=== PATIENT | male | born 1940 | race Caucasian/White ===

== ENCOUNTER → 2016-04-11 | Outpatient (CLI) | payer OTHER ==
[~2016-04-11] MED LIST: ACET-1256 PO; ASPEC81 PO; ASPI-390 PO; CIPRO PO; DOCU-94 PO; DUTA0.5C PO; EYED OPL; GARL10007 PO; GLC500 PO; GLYB5TAB8 PO; LATA0.5S OPL; LOSA100T26 PO; LOSARTAN/HCTZ; LPT/40 PO; LRT5 PO; MCR25 PO; METH1TAB81 PO; MULT-506 PO; NAPR1CAP12 PO; ONDA4TAB46 PO; PHEN-876 PO; SIMV80TA2 PO; TAMS0.4C38 PO
--- NOTE | 2016-04-11 13:17 | DIAGNOSTIC IMAGING REPORT ---
L-SPINE MIN 4 VIEWS ROUTINE CLINICAL HISTORY: Abnormal bone scan . COMPARISON: Lumbar spine radiographs January 28, 2011 and bone scan March 29, 2016. FINDINGS: No acute fracture is identified. No suspicious lesion is identified by radiography. There is grade I anterolisthesis of L4 and L5. There is marked disc space narrowing at L4-L5 and moderate to marked disc space narrowing at L5-S1. Findings have progressed since exam of January 28, 2011. Uptake at the L4-L5 level on bone scan of March 29, 2016 corresponds to the L4-L5 level and is likely degenerative in etiology. IMPRESSION: 1. Marked disc space narrowing with grade I anterolisthesis at L4-L5 which accounts for the finding at this level on bone scan of March 29, 2016. 2. No lumbar spine fracture. Electronically signed by: Mj Sutherland M.D. 04/11/2016 1:15 PM Dictated Date/Time: 04/11/2016 1:13 PM
--- NOTE | 2016-04-11 13:17 | DIAGNOSTIC IMAGING REPORT ---
THORACIC SPINE 3 VIEWS CLINICAL HISTORY: Reported history of unspecified abnormal bone scan. FINDINGS: AP, lateral, and swimmer's views of the thoracic spine are presented. No prior studies are available for comparison at the time of dictation. The skeletal structures are osteopenic. There is no radiographic evidence of fracture or malalignment. Vertebral body height and alignment are maintained throughout the thoracic spine. Anterior osteophytes are seen throughout. There is moderate to advanced multilevel degenerative disc space narrowing. Endplate sclerosis is also seen at several levels. The transverse processes and pedicles are grossly intact on the frontal view. The imaged posterior ribs are grossly clear. The lung parenchyma is clear as imaged. IMPRESSION: 1. No acute bony abnormality is identified in the thoracic spine. 2. Osteopenia and spondylotic change as above. Dictated: 04/11/2016 1:12 PM Transcribed: 04/11/2016 1:16 PM [facility] Electronically signed by: Sandro Elaine M.D. 04/11/2016 1:23 PM Dictated Date/Time: 04/11/2016 1:12 PM
== END | disposition home or self-care (01) ==
LOC: C.RAD 12:21
PROVIDERS: ATTEND Radiology Radiation Oncology
DX: C61 Malignant neoplasm of prostate (principal); R93.8 Abnormal findings on diagnostic imaging of other specified body structures; M43.16 Spondylolisthesis, lumbar region; M85.88 Other specified disorders of bone density and structure, other site

== ENCOUNTER → 2016-05-30 | Outpatient (CLI) | payer OTHER ==
[~2016-05-30] MED LIST changes: -LOSARTAN/HCTZ; -LRT5 PO; -MCR25 PO; -ONDA4TAB46 PO; -SIMV80TA2 PO
[2016-05-30 12:56] LABS: BLOOD UREA NITROGEN 20 mg/dl (7-18); BUN/CREATININE RATIO 16.3 (10-20); CARBON DIOXIDE 27 mmol/L (21-32); CHLORIDE 104 mmol/L (98-107); CHOLESTEROL 122 mg/dl (0-200); GLUCOSE 102 mg/dl (70-99); POTASSIUM 3.8 mmol/L (3.5-5.1); SODIUM 140 mmol/L (136-145)
[2016-05-30 12:59] LABS: CHOLESTEROL/HDL RATIO 3.3; HDL CHOLESTEROL 37 mg/dl; TRIGLYCERIDES 95 mg/dl (0-150); VERY LOW DENSITY LIPOPROT CALC 19 mg/dl
[2016-05-30 13:25] LABS: RATIO 8.6 mcg/mg (0-30.0)
[2016-05-30 14:08] LABS: ESTIMATED AVERAGE GLUCOSE 134 mg/dl; HA1C FLAG Normal (Normal)
== END | disposition home or self-care (01) ==
LOC: C.LABSPEC 12:18
PROVIDERS: ATTEND Internal Medicine
DX: I10 Essential (primary) hypertension (principal); E11.9 Type 2 diabetes mellitus without complications; E78.5 Hyperlipidemia, unspecified

== ENCOUNTER → 2016-06-25 | Outpatient (CLI) | payer OTHER ==
[~2016-06-25] MED LIST changes: -CIPRO PO; -METH1TAB81 PO; -PHEN-876 PO
--- NOTE | 2016-06-25 15:56 | ECHOCARDIOGRAM REPORT ---
*NOTICE TO RECEIVING CONSTITUTION PARTY AGENCY This information is strictly Confidential and protected under [place] law. [place] law prohibits you from making any further disclosure of this information unless further disclosure is expressly permitted by the written consent of the person to whom it pertains or is authorized by law. A general authorization for the release of medical or other information is not sufficient for this purpose. Hospital accepts no responsibility if the information is made available to any other person, INCLUDING THE PATIENT. Interpretation Summary * Name: CRISTINA HERR Study Date: 06/25/2016 01:41 PM BP: 147/81 mmHg * Patient Location: [facility] HR: 84 * : 1940 (M/d/yyyy) Gender: Male Height: 69 in * Age: 75 yrs Ethnicity: [place] Weight: 170 lb * Ordering Physician: Seamus Grubbs * Referring Physician: Seamus Grubbs * Performed By: Angi Jones RDCS * * Reason For Study: SYSTOLIC EJECTION MURMUR * BSA: 1.9 m2 * History: SYSTOLIC EJECTION MURMUR * -- Conclusions -- * Left ventricular systolic function is normal. * Mild valvular aortic stenosis. * There is mild mitral regurgitation. * Right ventricular systolic pressure is normal. * Grade I diastolic dysfunction, (abnormal relaxation pattern). Procedure Details * A complete two-dimensional transthoracic echocardiogram was performed (2D, M-mode, Doppler and color flow Doppler). Left Ventricle * The left ventricle is normal in size. * There is normal left ventricular wall thickness. * Left ventricular systolic function is normal. * Ejection Fraction = 50-55%. * Grade I diastolic dysfunction, (abnormal relaxation pattern). Right Ventricle * The right ventricle is normal in size and function. Atria * The left atrial size is normal. * Right atrial size is normal. Mitral Valve * The mitral valve leaflets appear thickened, but open well. * There is mild mitral regurgitation. Tricuspid Valve * The tricuspid valve is not well visualized, but is grossly normal. * There is mild tricuspid regurgitation. * Right ventricular systolic pressure is normal. Aortic Valve * The aortic valve is tricuspid. The leaflet thickness if normal. There is no aortic stenosis, and no significant insufficiency. * Mild valvular aortic stenosis. * There is no significant aortic regurgitation. Great Vessels * The aortic root is normal size. Pericardium/Pleural * There is no pericardial effusion. MMode 2D Measurements and Calculations IVSd 0.93 cm IVSs 1.2 cm LVIDd 4.0 cm LVIDs 3.5 cm LVPWd 0.97 cm LVPWs 1.5 cm IVS/LVPW 0.96 FS 13.4 % EDV(Teich) 71.5 ml ESV(Teich) 50.7 ml EF(Teich) 29.0 % EDV(cubed) 65.7 ml ESV(cubed) 42.7 ml EF(cubed) 35.0 % % IVS thick 34.0 % % LVPW thick 55.1 % LV mass(C)d 120.1 grams LV mass(C)dI 62.3 grams/m\S\2 LV mass(C)s 168.1 grams LV mass(C)sI 87.2 grams/m\S\2 SV(Teich) 20.8 ml SI(Teich) 10.8 ml/m\S\2 SV(cubed) 23.0 ml SI(cubed) 11.9 ml/m\S\2 Ao root diam 2.6 cm Ao root area 5.2 cm\S\2 LA dimension 2.9 cm LA/Ao 1.1 LVOT diam 2.1 cm LVOT area 3.4 cm\S\2 LVAd ap4 33.0 cm\S\2 LVLd ap4 8.1 cm EDV(MOD-sp4) 111.0 ml LVAs ap4 19.7 cm\S\2 LVLs ap4 6.8 cm ESV(MOD-sp4) 49.8 ml EF(MOD-sp4) 55.1 % LVAd ap2 22.9 cm\S\2 LVLd ap2 8.2 cm EDV(MOD-sp2) 54.4 ml LVAs ap2 13.2 cm\S\2 LVLs ap2 6.8 cm ESV(MOD-sp2) 23.0 ml EF(MOD-sp2) 57.7 % SV(MOD-sp4) 61.2 ml SI(MOD-sp4) 31.7 ml/m\S\2 SV(MOD-sp2) 31.4 ml SI(MOD-sp2) 16.3 ml/m\S\2 Doppler Measurements and Calculations MV E max miguelangel 53.8 cm/sec MV A max miguelangel 104.8 cm/sec MV E/A 0.51 MV dec time 0.22 sec Ao V2 max 247.8 cm/sec Ao max PG 24.6 mmHg Ao max PG (full) 22.3 mmHg Ao V2 mean 185.8 cm/sec Ao mean PG 15.0 mmHg Ao mean PG (full) 13.6 mmHg Ao V2 VTI 48.8 cm MELO(I,A) 1.2 cm\S\2 MELO(I,D) 1.2 cm\S\2 MELO(V,A) 1.0 cm\S\2 MELO(V,D) 1.0 cm\S\2 LV V1 max PG 2.3 mmHg LV V1 mean PG 1.4 mmHg LV V1 max 76.2 cm/sec LV V1 mean 55.8 cm/sec LV V1 VTI 17.1 cm SV(Ao) 251.5 ml SI(Ao) 130.4 ml/m\S\2 SV(LVOT) 57.3 ml SI(LVOT) 29.7 ml/m\S\2 TR max miguelangel 218.3 cm/sec
== END | disposition home or self-care (01) ==
LOC: C.CPL 13:27
PROVIDERS: ATTEND Anesthesiology Pain Medicine
DX: Z01.810 Encounter for preprocedural cardiovascular examination (principal); R01.1 Cardiac murmur, unspecified

== ENCOUNTER 2016-06-27 05:16 | Day surgery (SDC) | payer OTHER ==
[2016-06-12 11:47] VITALS: BMI 25.0
--- NOTE | 2016-06-12 12:25 | PAT Medication Instructions ---
Service Date Jun 12, 2016. Current Home Medication List Acetaminophen (Tylenol), 1-2 TAB PO PRN Aspirin Enteric Coated (Ecotrin Or Generic *), 81 MG PO QPM Bvfoyte-Ecshbimefmeai-Thfqciyq (Excedrin Migraine), 2 TAB PO PRN Atorvastatin (Lipitor), 80 MG PO QPM Docusate Sodium (Colace), 1 CAP PO BID Eye Drops (Eye Drops), 1 DROP OPL HS Garlic (Garlic), 1,000 MG PO QAM Glyburide (Micronase), 5 MG PO DAILY Glyburide (Micronase), 2.5 MG PO HS Losartan Potassium & Hydrochlo (Losartan Potassium/Hydroc), 1 TAB PO QAM Metformin HCL (Glucophage *), 1,000 MG PO BID Methylprednisolone (Medrol), 6 TAB PO UD Multivitamin (Multivitamin), 1 TAB PO QAM Naproxen Sodium (Aleve), 220 MG PO PRN Phenazopyridine HCl (Pyridium), 200 MG PO TID Tamsulosin Hcl (Flomax), 0.4 MG PO HS [Cipro], 1 TAB PO BID Medication Instructions For Your Scheduled Surgery Phenazopyridine HCl (Pyridium), 200 MG PO TID (patient no longer taking) [Cipro], 1 TAB PO BID (patient no longer taking) Methylprednisolone (Medrol), 6 TAB PO UD (patient no longer taking) - Check with surgeon for instructions: Aspirin Enteric Coated (Ecotrin Or Generic *), 81 MG PO QPM Yhjriue-Ieravnczueyqx-Kkrkgybk (Excedrin Migraine), 2 TAB PO PRN Naproxen Sodium (Aleve), 220 MG PO PRN - Hold the following medications 2 weeks prior to surgery: Garlic (Garlic), 1,000 MG PO QAM - Hold the following medications 48 hours prior to surgery: Metformin HCL (Glucophage *), 1,000 MG PO BID - Hold the following medications the morning of surgery: Multivitamin (Multivitamin), 1 TAB PO QAM Losartan Potassium & Hydrochlo (Losartan Potassium/Hydroc), 1 TAB PO QAM Glyburide (Micronase), 5 MG PO DAILY Docusate Sodium (Colace), 1 CAP PO BID - Take the following medications the morning of surgery with a sip of water: Acetaminophen (Tylenol), 1-2 TAB PO PRN - Take the following medications as scheduled the night before surgery: Tamsulosin Hcl (Flomax), 0.4 MG PO HS Glyburide (Micronase), 2.5 MG PO HS Eye Drops (Eye Drops), 1 DROP OPL HS Docusate Sodium (Colace), 1 CAP PO BID Atorvastatin (Lipitor), 80 MG PO QPM Acetaminophen (Tylenol), 1-2 TAB PO PRN If you have any questions please call us at [phone] (Celena Guerrero PA-C ) or [phone] or [phone]
[2016-06-12 12:49] LABS: BASO % 0.5 %; BASO ABS # 0.03 K/uL (0-0.2); COMPLETE YES; EOS % 1.6 %; HEMATOCRIT 41.3 % (42-52); IG% 0.2 %; LYMPH % 24.3 %; LYMPH ABS # 1.48 K/uL (1.2-3.4); MEAN CELL VOLUME 89.8 fL (80-100); MEAN CORPUSCULAR HEMOGLOBIN 30.7 pg (25-34); MEAN CORPUSCULAR HGB CONC 34.1 g/dl (32-36); MEAN PLATELET VOLUME 9.5 fL (7.4-10.4); MONO % 6.7 %; NEUT % 66.7 %; PLATELET COUNT 219 K/uL (130-400); WHITE BLOOD COUNT 6.08 K/uL (4.8-10.8)
[2016-06-12 13:01] LABS: URINE APPEARANCE CLEAR (CLEAR); URINE BILIRUBIN NEG (NEG); URINE COLOR YELLOW; URINE EPITHELIAL CELL AUTO 0-5 /lpf (0-5); URINE NITRITE NEG (NEG); URINE PH 6.5 (4.5-7.5); URINE SPECIFIC GRAVITY 1.012 (1.000-1.030); UROBILINOGEN NEG (NEG)
[2016-06-12 13:02] LABS: MANUAL MICROSCOPIC REQUIRED? NO; REVIEW REQ? NO
--- NOTE | 2016-06-12 13:03 | DIAGNOSTIC IMAGING REPORT ---
CHEST PREADMISSION(PA/LAT) CLINICAL HISTORY: PAT preoperative evaluation COMPARISON STUDY: No previous studies for comparison. FINDINGS: The bones soft tissues and hemidiaphragms are normal. The cardiomediastinal silhouette is normal. The lungs are clear. The pulmonary vasculature is normal. IMPRESSION: Negative chest. Electronically signed by: Azam Villegas M.D. 06/12/2016 1:01 PM Dictated Date/Time: 06/12/2016 12:57 PM
[~2016-06-27] VITALS: Ht 175.3 cm; Wt 79.0 kg
[~2016-06-27 05:16] MED LIST changes: -DUTA0.5C PO; -LATA0.5S OPL; -LOSA100T26 PO; +LOSA100T33 PO
[2016-06-27 05:40] VITALS: BP 179/91; PULSE 86; TEMP 36.5; O2SAT 95; Ht 175.3 cm; Wt 79.0 kg
[2016-06-27] MEDS ORDERED: LACTATED RINGER'S 1000ML 1,000 ML IV SCH (06:00)
[2016-06-27] MEDS ORDERED: GENTAMICIN INJ 120 MG in DEXTROSE 5% 100ML 100 ML IV SCH (06:00)
[2016-06-27] MEDS ORDERED: CIPROFLOXACIN / D5W 400 MG IV SCH (06:00)
[2016-06-27] MEDS ORDERED: LACTATED RINGER'S 1000ML 500 ML IV ONE (06:00)
[2016-06-27] MEDS ORDERED: ONDANSETRON INJ 2 MG/ML 2 ML VIAL ONE (06:38)
[2016-06-27] MEDS ORDERED: NEOSTIGMINE METHYLSULFATE 5 MG/5 ML SYR ONE (06:38)
[2016-06-27] MEDS ORDERED: MIDAZOLAM HCL 1 MG/ML 2ML VIAL ONE (06:38)
[2016-06-27] MEDS ORDERED: ROCURONIUM BROMIDE 10 MG/ML 5 ML VIAL ONE (06:38)
[2016-06-27] MEDS ORDERED: DEXAMETHASONE SOD INJ 4 MG/ML VIAL ONE (06:38)
[2016-06-27] MEDS ORDERED: GLYCOPYRROLATE INJ 0.2 MG/ML VIAL ONE (06:38)
[2016-06-27] MEDS ORDERED: LIDOCAINE HCL 2% 2 ML VIAL (20MG/ML) ONE (06:38)
[2016-06-27] MEDS ORDERED: FENTANYL CITRATE INJ 50 MCG/1 ML 2 ML VIAL ONE ×2 (06:38→08:37)
--- NOTE | 2016-06-27 07:04 | History & Physical Bridge Note ---
H&P Re-Evaluation Bridge Note: I have examined the patient, reviewed the History & Physical and in the interval since the performance of the History & Physical I have noted the following changes of clinical significance: No changes noted
[2016-06-27] MEDS ORDERED: NEOMYCIN/POLYMYX/BACITR OINT 15 GM TUBE ONE (07:07)
[2016-06-27] MEDS ORDERED: CONRAY 60% 50 ML VIAL ONE (07:07)
[2016-06-27] MEDS ORDERED: FENTANYL CITRATE INJ 50 MCG/1 ML 2 ML VIAL IV PRN (07:15)
[2016-06-27] MEDS ORDERED: ATROPINE SULFATE 0.1 MG/ML 5ML SYR IV PRN (07:15)
[2016-06-27] MEDS ORDERED: HYDROmorphone INJ 1 MG/ML SYR IV PRN (07:15)
[2016-06-27] MEDS ORDERED: EpHEDrine SULFATE INJ 50 MG/ML AMP IV PRN (07:15)
[2016-06-27] MEDS ORDERED: ONDANSETRON INJ 2 MG/ML 2 ML VIAL IV PRN (07:15)
[2016-06-27] MEDS ORDERED: PHENYLEPHRINE HCL INJ 10 MG/ML VIAL ONE (08:07)
[2016-06-27] MEDS ORDERED: PHENYLEPHRINE 100MCG/ML 5ML SYR ONE (08:12)
[2016-06-27] MEDS ORDERED: EpHEDrine SULFATE 50MG/5ML SYR ONE (08:12)
--- NOTE | 2016-06-27 10:26 | [facility] Post Operative Brief Note ---
Immediate Operative Summary Operative Date Jun 27, 2016. Pre-Operative Diagnosis cT2a Russel 3+4 Prostate Cancer Post-Operative Diagnosis Same Procedure(s) Performed Volume brachytherapy of the prostate, injection of SpaceOAR Surgeon Dr. Michele Lassiter, Dr. Barbosa Line Mechanic Surgeon(s) Kendall Mcallister Estimated Blood Loss 10 cc Findings 54 seeds placed via 18 needles, good seed location on fluoro Specimens None per surgeon Drains 16 fr silicone, 10 cc Anesthesia GAET Complication(s) None Disposition Recovery Room / PACU
[2016-06-27] MEDS ORDERED: ESMOLOL HCL 10 MG/ML 10 ML VIAL ONE (10:27)
--- NOTE | 2016-06-27 10:28 | Discharge Instructions ---
Discharge Instructions Date of Service Jun 27, 2016. Admission Reason for Admission: Prostate Cancer Discharge Discharge Diagnosis / Problem: Same s/p brachyRx and spaceOAR Discharge Goals Goal(s): Improve disease control, Therapeutic intervention Activity Recommendations Activity Limitations: per Instructions/Follow-up section Lifting Limitations: no more than 25 pounds, gradually increase as tolerated Exercise/Sports Limitations: rest today, gradually increase as tolerated May Resume Sexual Activity: after follow-up appointment Shower/Bathe: tomorrow Driving or Machine Use: resume 1 day after discharge . Discharge Diet Recommended Diet: Regular Diet (good fluid intake) Procedures Procedures Performed: Volume brachytherapy of the prostate, injection of SpaceOAR Pending Studies Studies pending at discharge: no Laboratory Results Hemoglobin A1c Test 05/30/16 09:15 Range/Units Estimated Average Glucose 134 mg/dl Hemoglobin A1c 6.3 H 4.5-5.6 % Lipid Panel Test 05/30/16 09:15 Range/Units Triglycerides Level 95 0-150 mg/dl Cholesterol Level 122 0-200 mg/dl HDL Cholesterol 37 mg/dl LDL Cholesterol Direct 73 mg/dl Cholesterol/HDL Ratio 3.3 LDL Cholesterol, Calculated mg/dl Medical Emergencies . Who to Call and When: Medical Emergencies: If at any time you feel your situation is an emergency, please call 911 immediately. . Non-Emergent Contact Non-Emergency issues call your: Urologist Call Non-Emergent contact if: you have a fever, temperature is above 101, your pain is not controlled, your pain is worsening, your pain is unusual for you, your pain is concerning you, wound has increased drainage, wound has increased redness, wound has increased pain, you have any medication questions . . "Provider Documentation" section prepared by Michele Lassiter. VTE Core Measure Inpt VTE Proph given/why not?: SCD's
[2016-06-27] MEDS ORDERED: OXYCODONE/ACETAMINOPHEN 5-325 TAB PO PRN (10:30)
--- NOTE | 2016-06-27 10:58 | Anesthesiology Progress Note ---
Anesthesia Post Op Note Date & Time Jun 27, 2016 at 10:57 Vital Signs Pain Intensity: 0 Vital Signs Past 12 Hours Date Time Temp Pulse Resp B/P Pulse Ox O2 Delivery O2 Flow Rate FiO2 06/27/16 10:50 73 16 130/79 96 Nasal Cannula 2 06/27/16 10:40 76 16 132/76 100 Mask 5 06/27/16 10:30 78 16 132/81 100 Mask 10 06/27/16 10:25 36.8 86 16 136/79 99 Mask 10 06/27/16 05:40 36.5 86 18 179/91 95 Room Air Notes Mental Status: alert / awake / arousable, participated in evaluation Pt Amnestic to Procedure: Yes Nausea / Vomiting: adequately controlled Pain: adequately controlled Airway Patency, RR, SpO2: stable & adequate BP & HR: stable & adequate Hydration State: stable & adequate Anesthetic Complications: no major complications apparent
[2016-06-27 11:10] VITALS: BP 138/76; PULSE 74; TEMP 36.5; O2SAT 96
[2016-06-27 11:40] VITALS: BP 138/70; PULSE 88; O2SAT 97
--- NOTE | 2016-06-27 11:48 | DIAGNOSTIC IMAGING REPORT ---
PELVIS 1 OR 2 VIEWS ROUTINE CLINICAL HISTORY: Brachy Therapy prostate carcinoma COMPARISON: None. DISCUSSION: Bladder is opacified. Radioactive seeds are identified within the prosthetic bed. IMPRESSION: Image intensifier utilization for radioactive seed placement within the prostate Electronically signed by: Azam Villegas M.D. 06/27/2016 11:47 AM Dictated Date/Time: 06/27/2016 11:46 AM
[2016-06-27 12:10] VITALS: BP 128/81; PULSE 85; TEMP 36.6; O2SAT 97
--- NOTE | 2016-06-27 14:32 | OPERATIVE REPORT ---
DATE OF OPERATION: 06/27/2016 PREOPERATIVE DIAGNOSIS: Clinical T2a, Hamlet 3+4 prostate cancer. POSTOPERATIVE DIAGNOSIS: Same. PROCEDURE: Volumetric analysis and brachytherapy of the prostate gland. Injection of SpaceOAR perirectal gel. SURGEON: Dr. Michele Lassiter and Dr. Humberto Barbosa. PERSONNEL RECORDS CLERK: Erasmo Mcallister. ESTIMATED BLOOD LOSS: 10 mL. SPECIMENS SENT TO PATHOLOGY: None. DRAINS LEFT IN PLACE: A 16-Cymro Duran catheter silicone gravity drainage with 10 mL of sterile water in the balloon. ANESTHESIA: General anesthesia with endotracheal intubation. COMPLICATIONS: None. FINDINGS: A 58 seeds placed via 18 needles on fluoroscopy in a 33 mL gland with good seed location on live ultrasound analysis and fluoroscopy. BRIEF HISTORY: Mr. Taveras is a pleasant 75-year-old male who I have seen as an outpatient for history of prostate nodule, who underwent a prostate biopsy demonstrating Hamlet 3+4 adenocarcinoma. Please see H\T\P for further details. After discussion of risks and benefits of various forms of management, he has decided upon brachytherapy with XRT boost to manage his disease. He has declined androgen deprivation therapy for his intermediate risk disease. Please see H\T\P for further details. Perirectal gel spacer in the form of SpaceOAR injection is also planned to help minimize morbidity of the procedure. Intravenous antibiotics provided with SCDs used for DVT prophylaxis. The patient has followed his standard preparation preoperatively as planned. DESCRIPTION OF PROCEDURE: The patient was properly identified and brought to the operative suite after identification of appropriate consent on the chart, general anesthesia with endotracheal intubation was initiated and the patient was prepped and draped in standard fashion for this procedure. part time flexible clerk-out procedure was followed. The patient was placed in the high lithotomy position and transrectal ultrasound probe was advanced. Prostate was visualized with central calcifications as previously noted. A 16-Cymro silicone catheter was placed and contrast was placed into the bladder. Aerated gel was placed within the catheter for improved identification of the urethra. Prostate images were captured and mapped and 13 peripheral needles were placed circumferentially. After radiation oncology planning, peripheral needles were placed per the plan with good visualization of the posterior needles. Some of the anterior needles were somewhat obscured due to prostatic calcifications, but appreciated at good location on fluoroscopy at the end of the case. After the first pass was completed, radiation oncology planning was finalized and 5 central needles were placed with a second pass of seed dropping as necessary. A total of 54 seeds were placed via 18 needles. Post-procedure fluoroscopy demonstrated good location. No evidence of any seeds within the bladder. Catheter was flushed and placed to gravity drainage. Using live ultrasound, SpaceOAR was injected in the central aspect of the plane between the prostate and the rectum. Great care was taken to avoid any buttonholing of the rectum on insertion of the needle. A space was identified and flushed using saline irrigation and perirectal gel was placed with evidence of good location on live ultrasound imaging. A perineal pressure was held for edema and hemostasis. Catheter was placed to gravity drainage and anesthesia was reversed. No evidence of any worrisome background radiation was noted on inspection of the room. The patient was transferred to recovery room in stable condition. FOLLOWUP CARE: The patient will be discharged home to complete his medications as previously prescribed. A trial of void in the radiation oncology service today after further imaging. The patient is instructed to contact us should he note any fevers, chills, nausea, vomiting or other significant difficulties in the postoperative period. I attest to the content of the Intraoperative Record and any orders documented therein. Any exceptions are noted below. OLED
[2016-07-30] MEDS ORDERED: LATA0.5S OPL (14:37)
[2016-07-30] MEDS ORDERED: DUTA0.5C PO (14:40)
== END 2016-06-27 12:20 | disposition home or self-care (01) ==
LOC: C.ACU 05:16
PROVIDERS: ATTEND Urology
DX: C61 Malignant neoplasm of prostate (principal); E11.9 Type 2 diabetes mellitus without complications; E78.5 Hyperlipidemia, unspecified; I10 Essential (primary) hypertension; Z87.891 Personal history of nicotine dependence; Z79.899 Other long term (current) drug therapy
CPT/HCPCS: 0438T; 55875

== ENCOUNTER → 2016-07-10 | Outpatient (CLI) | payer OTHER ==
[~2016-07-10] MED LIST changes: +DUTA0.5C PO; +LATA0.5S OPL
[2016-07-10 13:11] LABS: BLOOD UREA NITROGEN 50 mg/dl (7-18); BUN/CREATININE RATIO 20.8 (10-20)
== END | disposition home or self-care (01) ==
LOC: C.LABSPEC 12:28
PROVIDERS: ATTEND Urology
DX: C61 Malignant neoplasm of prostate (principal)

== ENCOUNTER → 2016-07-15 | Outpatient (CLI) | payer OTHER ==
[~2016-07-15] MED LIST changes: +LOSA100T26 PO; -LOSA100T33 PO
--- NOTE | 2016-09-26 07:48 | CODING QUERY NO DIAGNOSIS ---
: 1940 TREATMENT RENDERED WITHOUT A DIAGNOSIS To promote full compliance with coding requirements relating to patient care, physician participation is requested in all cases of certified medical records coder uncertainty. Please assist us with providing a diagnosis/symptom for the test(s) below: A diagnosis/symptom was not documented on your Order. A valid diagnosis/symptom is required to bill all insurances. Please remember that we are unable to code a diagnosis of rule out, probable, possible, questionable, or suspected. Tests that require a diagnosis: DOS: 07/15/16 BRACHYTX ISODOSE COMPLEX DIAGNOSIS: Provider Signature: Date: Thank you Kay Sterling [facility] Health Information Management Once completed, please kindly fax back to [phone] For questions please call [phone]
== END | disposition home or self-care (01) ==
LOC: C.ONC 12:55
PROVIDERS: ATTEND Physician Assistant Medical
DX: Z51.0 Encounter for antineoplastic radiation therapy (principal); C61 Malignant neoplasm of prostate

== ENCOUNTER → 2016-07-16 | Outpatient (CLI) | payer OTHER ==
[~2016-07-16] MED LIST changes: -LOSA100T26 PO; +LOSA100T33 PO
[2016-07-16 18:36] LABS: BLOOD UREA NITROGEN 30 mg/dl (7-18); BUN/CREATININE RATIO 15.9 (10-20)
== END | disposition home or self-care (01) ==
LOC: C.LAB 17:53
PROVIDERS: ATTEND Urology
DX: N28.9 Disorder of kidney and ureter, unspecified (principal)

== ENCOUNTER → 2016-07-17 | Outpatient (CLI) | payer OTHER | END | disposition home or self-care (01) | LOC: C.LABSPEC 17:00 | PROVIDERS: ATTEND Nurse Practitioner Adult Health | DX: C61 Malignant neoplasm of prostate (principal) ==

== ENCOUNTER → 2016-07-19 | Outpatient (CLI) | payer OTHER ==
[2016-07-19 13:03] LABS: CALCIUM 9.3 mg/dl (8.5-10.1)
[2016-07-19 13:09] LABS: BLOOD UREA NITROGEN 31 mg/dl (7-18); BUN/CREATININE RATIO 18.2 (10-20); CARBON DIOXIDE 28 mmol/L (21-32); CHLORIDE 101 mmol/L (98-107); GLUCOSE 280 mg/dl (70-99); POTASSIUM 3.5 mmol/L (3.5-5.1); SODIUM 137 mmol/L (136-145)
== END | disposition home or self-care (01) ==
LOC: C.LABSPEC 12:05
PROVIDERS: ATTEND Internal Medicine
DX: R94.4 Abnormal results of kidney function studies (principal)

== ENCOUNTER → 2016-07-22 | Outpatient (CLI) | payer OTHER ==
--- NOTE | 2016-07-22 11:17 | DIAGNOSTIC IMAGING REPORT ---
CT SCAN OF THE ABDOMEN AND PELVIS WITHOUT CONTRAST CLINICAL HISTORY: Prostate carcinoma COMPARISON STUDY: 10/24/2009 TECHNIQUE: CT scan of the abdomen and pelvis was performed from the lung bases to the proximal femurs. Images are reviewed in the axial, sagittal, and coronal planes. IV contrast was not administered for this examination. CT DOSE: 373.08 mGy.cm FINDINGS: Lower chest: There are mild atelectatic changes present within the dependent lung bases and lingula. Liver: The unenhanced liver is normal in size, contour, and attenuation. There is no intrahepatic biliary ductal dilatation. Gallbladder: Unremarkable. Spleen: Normal in size and attenuation. Pancreas: Unremarkable. Adrenal glands: There is mild adrenal gland thickening. Kidneys: There are bilateral renal calculi including a 5 mm right renal calculus and 4 mm left renal calculus. There are hypodense left renal lesions most consistent with cysts. The largest measures 24 mm. Bowel: There are no transition zones to indicate bowel obstruction. The appendix appears normal. There is pandiverticulosis. No acute peridiverticular inflammatory changes are visualized. Peritoneum: There is no intraperitoneal free air or abdominal ascites. There is small fat-containing left inguinal hernia. Vasculature: The abdominal aorta is normal in course and caliber. Adenopathy: None. Pelvic viscera: Multiple prostate radiation therapy implant seeds are visualized. There are prostatic calcifications present. Skeletal structures: There is a nonspecific 14 mm sclerotic lesion involving the L1 vertebral body posterior laterally on the left. There are multilevel degenerative changes most pronounced the L4-5 level. IMPRESSION: 1. Prostate patient therapy implant seeds are visualized 2. Small fat-containing left inguinal hernia 3. Reyes diverticulosis. No evidence of acute peridiverticular inflammatory change 4. No evidence of pathologic adenopathy 5. Nonspecific 14 mm sclerotic lesion involving the L1 vertebral body. In retrospect, this was present on the prior December 2009 study. It is only minimally larger. The relative stability favors a benign process. 6. Bilateral nephrolithiasis Electronically signed by: Ugo Warner M.D. 07/22/2016 11:14 AM Dictated Date/Time: 07/22/2016 11:06 AM
[2016-07-22 12:48] LABS: BLOOD UREA NITROGEN 31 mg/dl (7-18); BUN/CREATININE RATIO 19.3 (10-20); CARBON DIOXIDE 31 mmol/L (21-32); CHLORIDE 101 mmol/L (98-107); GLUCOSE 181 mg/dl (70-99); POTASSIUM 3.5 mmol/L (3.5-5.1); SODIUM 139 mmol/L (136-145)
[2016-07-22 13:23] LABS: CALCIUM 10.1 mg/dl (8.5-10.1)
== END | disposition home or self-care (01) ==
LOC: C.CTS 10:30
PROVIDERS: ATTEND Nurse Practitioner Adult Health
DX: R94.4 Abnormal results of kidney function studies (principal); C61 Malignant neoplasm of prostate

== ENCOUNTER → 2016-08-06 | Outpatient (CLI) | payer OTHER ==
[~2016-08-06] MED LIST changes: -ACET-1256 PO; -ASPI-390 PO; -DOCU-94 PO; -EYED OPL; -GLC500 PO; -NAPR1CAP12 PO
[2016-08-06 13:08] LABS: BLOOD UREA NITROGEN 23 mg/dl (7-18); BUN/CREATININE RATIO 16.4 (10-20); CALCIUM 9.3 mg/dl (8.5-10.1); CARBON DIOXIDE 30 mmol/L (21-32); CHLORIDE 102 mmol/L (98-107); GLUCOSE 155 mg/dl (70-99); POTASSIUM 3.8 mmol/L (3.5-5.1); SODIUM 139 mmol/L (136-145)
== END | disposition home or self-care (01) ==
LOC: C.LABSPEC 12:21
PROVIDERS: ATTEND Internal Medicine
DX: R94.4 Abnormal results of kidney function studies (principal)

== ENCOUNTER → 2016-08-07 | Outpatient (CLI) | payer OTHER ==
--- NOTE | 2016-08-07 13:21 | DIAGNOSTIC IMAGING REPORT ---
MRI OF THE PELVIS WITHOUT CONTRAST SPACEOAR PROTOCOL CLINICAL HISTORY: Prostate cancer. SpaceOAR protocol. COMPARISON STUDY: CT of the abdomen and pelvis July 22, 2016. TECHNIQUE: Utilizing a 1.5 Nicole magnet, multiplanar, multiecho imaging of the pelvis was performed without IV contrast. FINDINGS: Note is made of a 3.8 x 2.1 x 3.6 cm T2 hyperintense focus located between the right anterior aspect of the rectum and the prostate consistent with hydrogel spacer. This is just to the right of midline and separates the rectum from the prostate. The rectum does not appear to contact the prostate on this examination. No pelvic lymphadenopathy is identified. No suspicious marrow replacement is identified within visualized skeletal structures. There are multiple small bladder diverticula/trabeculations within the bladder. The prostate is mildly enlarged. There is relative T2 hypointensity along the right posterior aspect the prostate which could reflect the known primary malignancy. IMPRESSION: 1. Expected findings following placement of hydrogel spacer which is just to the right of midline and separates from the rectum from the prostate, as described above. 2. Relative T2 hypointensity within the right posterior aspect of the prostate which could reflect the known malignancy. No evidence of metastatic disease within visualized portions of the pelvis. Electronically signed by: Mj Sutherland M.D. 08/07/2016 1:19 PM Dictated Date/Time: 08/07/2016 1:07 PM
== END | disposition home or self-care (01) ==
LOC: C.MRI 11:24
PROVIDERS: ATTEND Physician Assistant Medical
DX: Z51.0 Encounter for antineoplastic radiation therapy (principal); C61 Malignant neoplasm of prostate

== ENCOUNTER → 2016-09-27 | Outpatient (CLI) | payer OTHER ==
[~2016-09-27] MED LIST changes: +LOSA100T26 PO; -LOSA100T33 PO
[2016-09-27 13:16] LABS: BLOOD UREA NITROGEN 21 mg/dl (7-18); BUN/CREATININE RATIO 14.9 (10-20); CALCIUM 9.6 mg/dl (8.5-10.1); CARBON DIOXIDE 29 mmol/L (21-32); CHLORIDE 103 mmol/L (98-107); GLUCOSE 136 mg/dl (70-99); POTASSIUM 3.9 mmol/L (3.5-5.1); SODIUM 138 mmol/L (136-145)
[2016-09-27 13:21] LABS: PROSTATE SPECIFIC ANTIGEN 0.234 ng/ml (0.000-4.000)
== END | disposition home or self-care (01) ==
LOC: C.LABSPEC 12:46
PROVIDERS: ATTEND Nurse Practitioner Adult Health
DX: C61 Malignant neoplasm of prostate (principal)

== ENCOUNTER → 2016-10-24 | Outpatient (CLI) | payer OTHER ==
[2016-10-24 14:53] VITALS: BP 120/72; PULSE 71; TEMP 36.5; O2SAT 95
--- NOTE | 2016-10-24 16:59 | Radiation Oncology Follow-Up ---
Radiation Oncology Follow-Up Date of Visit Oct 24, 2016. Reason For Visit One-month follow-up Radiation Completion Date 09/23/16 Diagnosis (1) Prostate cancer Status: Acute Onset Date: 03/13/2016 Location: right lobe of the prostate Histology Subtype: adenocarcinoma Stage: ll Permanent Comment: Rising PSA, pretreatment PSA 3.090 Clinical stage C2c-D8g Status post ultrasound-guided biopsies 03/13/2016 revealing adenocarcinoma Biopsy stage T2b Russel 3+4 Prostate volume 34.5 Prostate density 0.089 Status post prostate seed implant as a boost 06/27/2016. Received 8500 cGy. 54 seeds were placed/placement of Space OAR Status post completion of IMRT/IGRT 09/23/2016. He received 4500 cGy Last Edited By: Ameila Avelar on Oct 02, 2016 13:01 History of Present Illness Mr. Taveras is a 76-year-old male who has a family history of prostate cancer. The patient's brother at age 74 with a history of metastatic prostate cancer. The patient's father at age 86 with a history of lung cancer but also possibly prostate cancer. The patient is therefore been followed with regular prostate- specific antigen screening. His prostatespecific antigens have been low in the range of 1-2 through August 2012. His next recorded prostate-specific antigen was on 12/05/2015. This showed a modest increase to 3.09. However because of the change in prostate-specific antigen the [facility]. The patient's digital rectal exam was abnormal with a palpable nodule that was indurated. With the abnormal digital rectal exam and the rising prostate-specific antigen Dr. Lassiter recommended consideration of ultrasound-guided prostate biopsies. The patient ultimately treated and this was scheduled and performed on 03/13/2016. The patient underwent an ultrasound-guided biopsy consisting of two biopsies each from the left and right base, left and right mid gland, left and right apex. One biopsy was taken from the left and right anterior gland. Therefore a total of 14 biopsies were taken. The biopsies from the left base, left mid, left apex and right and left anterior gland were benign. 22 biopsies from the right base were positive for prostatic adenocarcinoma Yoder grade 3+4 involving 20% and 45% of the core tissue sample respectively. The Yoder 4 component was 30% of the tumor volume. There was evidence of prostatic intraepithelial neoplasia, high-grade. There was no perineural or lymphovascular invasion identified. 2 of 2 biopsies from the right mid gland were positive for prostatic adenocarcinoma Russel grade 3+4 involving 20% 50% of the core tissue sample respectively with the Russel pattern 4 representing 30% of the tumor volume. There was evidence of high-grade PIN with no perineural or lymphovascular invasion seen. One of 2 biopsies from the right apex were positive for adenocarcinoma Russel grade 3+4 involving 35% of the core tissue sample with the Yoder pattern 4 representing 10% of the tumor volume. No perineural or lymphovascular invasion was identified. Therefore total of 5 of 14 biopsies were positive on the biopsies were Russel grade 3+4 and all were on the right side of the gland. Case: [id number]. Dr. Lassiter ordered a staging bone scan performed on 03/29/2016. This showed nonspecific foci of increased activity within the thoracic spine at the T9 and T10 levels. A focus of increased activity was noted within the lumbar spine at the L4-L5 level. Plain films of the thorax and lumbar spine were recommended for correlative purposes. These images have been ordered and were negative for metastatic disease. He then underwent a prostate seed implant with placement of Space OAR performed on 06/27/2016. 54 seeds were placed. He returned and underwent IMRT/IGRT. Treatments began 08/19/2016 and were completed 09/23/2016. He received 4500 cGy. Interim History He has been doing well over this past month. He does continue to have urinary symptoms. He completed AUA report and gave a score of 12 today. He continues on the Flomax twice a day. He completed complete an expanded prostate cancer index composite for clinical practice and gave a score of 2 of 12 urinary incontinent symptoms. He gave a score of 3 of 12 in urinary irritation symptoms. He gave a score of 4 of 12 bowel symptoms. He gave a score of one of 12 in sexual symptoms. He gave a score of 2 of 12 in hormonal vitality symptoms. His total was 12 of 60. He has seen Dr. Lassiter in follow-up. He is also had his PSA checked by his primary care physician. The most recent PSA was 09/27/2016 and that was 0.234. Allergies Coded Allergies: No Known Allergies (Unverified , 06/27/16) Home Medications Scheduled Aspirin Enteric Coated (Ecotrin Or Generic *), 81 MG PO QPM Atorvastatin (Lipitor), 80 MG PO QPM Dutasteride (Avodart), 1 CAP PO DAILY Garlic (Garlic), 1,000 MG PO QAM Glyburide (Micronase), 5 MG PO DAILY Glyburide (Micronase), 2.5 MG PO HS Hctz/Losartan (Hyzaar 12.5MG/100MG), 1 TAB PO QAM Latanoprost (Xalatan 0.005% Oph Ilana), 1 DROPS OPL HS Multivitamin (Multivitamin), 1 TAB PO QAM Tamsulosin Hcl (Flomax), 0.4 MG PO BID Review of Systems Gastrointestinal: Symptoms: WNL Oral: Symptoms: No Problems Respiratory: Symptoms: WNL Urinary: Symptoms: WNL, Nocturia Comments: Nocturia x 1-2, Urge Incontinence, See AUA & EPIC Skin: Symptoms: No Problems Additional Notes: He completed a distress management report and answered "no" to all questions. Physical Exam Vital Signs Date Time Temp Pulse Resp B/P (MAP) Pulse Ox O2 Delivery O2 Flow Rate FiO2 10/24/16 14:53 36.5 71 12 120/72 95 Fatigue: None General Appearance: no apparent distress Eyes: normal inspection, EOMI ENT: normal ENT inspection, hearing grossly normal Neck: no adenopathy, thyroid normal Respiratory/Chest: lungs clear, no respiratory distress, no accessory muscle use Cardiovascular: regular rate, rhythm, no gallop, no murmur Abdomen: non tender, soft Extremities: no pedal edema Neurologic/Psychiatric: no motor/sensory deficits, alert, normal mood/affect Skin: warm/dry Laboratory Studies Test 08/06/16 09:30 09/27/16 10:30 Sodium Level 139 mmol/L (136-145) 138 mmol/L (136-145) Potassium Level 3.8 mmol/L (3.5-5.1) 3.9 mmol/L (3.5-5.1) Chloride Level 102 mmol/L (98-107) 103 mmol/L (98-107) Carbon Dioxide Level 30 mmol/L (21-32) 29 mmol/L (21-32) Anion Gap 7.0 mmol/L (3-11) 6.0 mmol/L (3-11) Blood Urea Nitrogen 23 mg/dl (7-18) 21 mg/dl (7-18) Creatinine 1.40 mg/dl (0.60-1.40) 1.40 mg/dl (0.60-1.40) Estimated GFR () 56.6 56.2 Estimated GFR (Non- 48.8 48.5 BUN/Creatinine Ratio 16.4 (10-20) 14.9 (10-20) Random Glucose 155 mg/dl (70-99) 136 mg/dl (70-99) Calcium Level 9.3 mg/dl (8.5-10.1) 9.6 mg/dl (8.5-10.1) Prostate Specific Antigen 0.234 ng/ml (0.000-4.000) Assessment & Plan Plan: Continue regular follow-up with Dr. Lassiter and Dr. Frantz Brown. He should have recheck PSAs every 6 months. Today we completed a cancer survivorship care plan. A copy of the document was given to the patient. His most recent PSAs were reviewed. These were included on the document. Because his AUA score is still at 12. We discussed continuing to the Flomax twice a day. I did review with him that if in a month his urinary symptoms have greatly improved he could try going down to 1 pill per day. He does have an appointment with Dr. Lassiter in December. We asked him to return to our office in 6 months. He may call our office if he has any questions or concerns in the interim. Total Time In Follow-Up I spent 20 minutes speaking to the patient performing examination. I spent 20 minutes reviewing information, preparing the survivorship document, and completing this note. Copy To Salbador Watkins M.D.; Michele Lassiter MD, Urology
== END | disposition home or self-care (01) ==
LOC: C.ONC 14:49
PROVIDERS: ATTEND Physician Assistant Medical
DX: Z08 Encounter for follow-up examination after completed treatment for malignant neoplasm (principal); Z92.3 Personal history of irradiation; Z85.46 Personal history of malignant neoplasm of prostate

== ENCOUNTER → 2016-12-06 | Outpatient (CLI) | payer OTHER ==
[2016-12-06 13:38] LABS: ESTIMATED AVERAGE GLUCOSE 154 mg/dl; HA1C FLAG Normal (Normal)
[2016-12-06 14:01] LABS: ALT/SGPT 31 U/L (12-78); AST/SGOT 23 U/L (15-37); BLOOD UREA NITROGEN 17 mg/dl (7-18); BUN/CREATININE RATIO 14.5 (10-20); CARBON DIOXIDE 28 mmol/L (21-32); CHLORIDE 105 mmol/L (98-107); CHOLESTEROL 128 mg/dl (0-200); GLUCOSE 134 mg/dl (70-99); POTASSIUM 3.8 mmol/L (3.5-5.1); SODIUM 139 mmol/L (136-145); TRIGLYCERIDES 105 mg/dl (0-150); VERY LOW DENSITY LIPOPROT CALC 21 mg/dl
[2016-12-06 14:06] LABS: ALB/GLOB RATIO 1.1 (0.9-2); ALKALINE PHOSPHATASE 78 U/L (45-117); CHOLESTEROL/HDL RATIO 3.2; HDL CHOLESTEROL 40 mg/dl; PROSTATE SPECIFIC ANTIGEN 0.127 ng/ml (0.000-4.000)
== END | disposition home or self-care (01) ==
LOC: C.LABSPEC 12:19
PROVIDERS: ATTEND Internal Medicine
DX: Z00.00 Encounter for general adult medical examination without abnormal findings (principal); R73.9 Hyperglycemia, unspecified; E78.5 Hyperlipidemia, unspecified; I10 Essential (primary) hypertension; C61 Malignant neoplasm of prostate

== ENCOUNTER → 2016-12-30 | Outpatient (CLI) | payer OTHER | END | disposition home or self-care (01) | LOC: C.LABSPEC 15:32 | PROVIDERS: ATTEND Internal Medicine | DX: Z12.11 Encounter for screening for malignant neoplasm of colon (principal) ==

== ENCOUNTER → 2017-01-01 | Outpatient (CLI) | payer OTHER ==
--- NOTE | 2017-01-01 14:26 | DIAGNOSTIC IMAGING REPORT ---
KUB CLINICAL HISTORY: 76 years-old Male presenting with N40.2 Prostate [id number] Prostate [id number] BPH (benign prosta. TECHNIQUE: Single supine view of the abdomen was obtained. COMPARISON: Correlation made to CT from 07/22/2016. FINDINGS: Bilateral renal calculi noted. Moderate stool burden in the right colon degrades evaluation. No calcification along the courses of the ureters. Multiple pelvic phleboliths noted. Prostate brachytherapy seeds. No bowel obstruction. Degenerative changes of the lumbar spine. IMPRESSION: 1. Brachytherapy seeds evidence of prior treated prostate cancer. 2. Bilateral nephrolithiasis. Electronically signed by: Jad Phipps M.D. 01/01/2017 2:25 PM Dictated Date/Time: 01/01/2017 2:22 PM
[2017-01-01 15:22] LABS: BLOOD UREA NITROGEN 21 mg/dl (7-18); BUN/CREATININE RATIO 15.3 (10-20)
[2017-01-01 15:26] LABS: PROSTATE SPECIFIC ANTIGEN 0.121 ng/ml (0.000-4.000)
== END | disposition home or self-care (01) ==
LOC: C.RAD 12:44
PROVIDERS: ATTEND Urology
DX: N40.0 Benign prostatic hyperplasia without lower urinary tract symptoms (principal); C61 Malignant neoplasm of prostate; N40.2 Nodular prostate without lower urinary tract symptoms; N25.9 Disorder resulting from impaired renal tubular function, unspecified; R39.12 Poor urinary stream

== ENCOUNTER → 2017-04-15 | Outpatient (CLI) | payer OTHER ==
[~2017-04-15] MED LIST changes: -LOSA100T26 PO; +LOSA100T33 PO
[2017-04-15 13:38] LABS: HEMOGLOBIN A1C 8.5 % (4.5-5.6)
[2017-04-15 14:00] LABS: BLOOD UREA NITROGEN 20 mg/dl (7-18); CALCIUM 9.3 mg/dl (8.5-10.1); CARBON DIOXIDE 31 mmol/L (21-32); GLUCOSE 165 mg/dl (70-99); POTASSIUM 3.6 mmol/L (3.5-5.1); SODIUM 135 mmol/L (136-145)
[2017-04-15 14:05] LABS: CHOLESTEROL 132 mg/dl (0-200); LDL CHOLESTEROL (DIRECT) 80 mg/dl
== END | disposition home or self-care (01) ==
LOC: C.LABSPEC 12:56
PROVIDERS: ATTEND Internal Medicine
DX: I10 Essential (primary) hypertension (principal); E11.9 Type 2 diabetes mellitus without complications; E78.5 Hyperlipidemia, unspecified; C61 Malignant neoplasm of prostate

== ENCOUNTER → 2017-05-02 | Outpatient (CLI) | payer OTHER ==
[2017-05-02 10:20] VITALS: BP 135/79; PULSE 81; TEMP 36.6; O2SAT 99
--- NOTE | 2017-05-02 13:17 | Radiation Oncology Follow-Up ---
Radiation Oncology Follow-Up Date of Visit May 02, 2017. Reason For Visit 6 month follow-up Radiation Completion Date 09/23/16 Diagnosis (1) Prostate cancer Status: Acute Onset Date: 03/13/2016 Location: right lobe of the prostate Histology Subtype: adenocarcinoma Stage: ll Permanent Comment: Rising PSA, pretreatment PSA 3.090 Clinical stage J9l-H9h Status post ultrasound-guided biopsies 03/13/2016 revealing adenocarcinoma Biopsy stage T2b Buffalo 3+4 Prostate volume 34.5 Prostate density 0.089 Status post prostate seed implant as a boost 06/27/2016. Received 8500 cGy. 54 seeds were placed/placement of Space OAR Status post completion of IMRT/IGRT 09/23/2016. He received 4500 cGy Last Edited By: Amelia Avelar on Oct 02, 2016 13:01 History of Present Illness Mr. Taveras has a family history of prostate cancer. The patient's brother at age 74 with a history of metastatic prostate cancer. The patient's father at age 86 with a history of lung cancer but also possibly prostate cancer. The patient is therefore been followed with regular prostate- specific antigen screening. His prostatespecific antigens have been low in the range of 1-2 through August 2012. His next recorded prostate-specific antigen was on 12/05/2015. This showed a modest increase to 3.09. However because of the change in prostate-specific antigen the patient was sent for referral by Dr[facility] to see Dr. Michele Lassiter. The patient's digital rectal exam was abnormal with a palpable nodule that was indurated. With the abnormal digital rectal exam and the rising prostate-specific antigen Dr. Lassiter recommended consideration of ultrasound-guided prostate biopsies. The patient ultimately treated and this was scheduled and performed on 03/13/2016. The patient underwent an ultrasound-guided biopsy consisting of two biopsies each from the left and right base, left and right mid gland, left and right apex. One biopsy was taken from the left and right anterior gland. Therefore a total of 14 biopsies were taken. The biopsies from the left base, left mid, left apex and right and left anterior gland were benign. 22 biopsies from the right base were positive for prostatic adenocarcinoma Russel grade 3+4 involving 20% and 45% of the core tissue sample respectively. The Buffalo 4 component was 30% of the tumor volume. There was evidence of prostatic intraepithelial neoplasia, high-grade. There was no perineural or lymphovascular invasion identified. 2 of 2 biopsies from the right mid gland were positive for prostatic adenocarcinoma Russel grade 3+4 involving 20% 50% of the core tissue sample respectively with the Buffalo pattern 4 representing 30% of the tumor volume. There was evidence of high-grade PIN with no perineural or lymphovascular invasion seen. One of 2 biopsies from the right apex were positive for adenocarcinoma Buffalo grade 3+4 involving 35% of the core tissue sample with the Buffalo pattern 4 representing 10% of the tumor volume. No perineural or lymphovascular invasion was identified. Therefore total of 5 of 14 biopsies were positive on the biopsies were Buffalo grade 3+4 and all were on the right side of the gland. Case: [id number]. Dr. Lassiter ordered a staging bone scan performed on 03/29/2016. This showed nonspecific foci of increased activity within the thoracic spine at the T9 and T10 levels. A focus of increased activity was noted within the lumbar spine at the L4-L5 level. Plain films of the thorax and lumbar spine were recommended for correlative purposes. These images have been ordered and were negative for metastatic disease. He then underwent a prostate seed implant with placement of Space OAR performed on 06/27/2016. 54 seeds were placed. He returned and underwent IMRT/IGRT. Treatments began 08/19/2016 and were completed 09/23/2016. He received 4500 cGy. Interim History His urinary status is stable. Today he gave an AUA score of 4. He completed and expanded prostate cancer index composite for clinical practice and gave a score of one of 12 urinary incontinence symptoms. He gave a score of one of 12 and urinary irritation symptoms. He gave a score of 0 12 and bowel symptoms. He gave a score of 4 of 12 and sexual symptoms. He gave a score of 2 of 12 and hormonal vitality symptoms. His total was 7 of 60. He has had an issue with nasal congestion since starting tamsulosin. He did speak with Dr. Lassiter's office approximately 3 weeks ago and the dose was decreased from 2 pills to 1. With the change in medication and he feels there is been no change in his urinary status. He does have occasional lightheadedness. His PSA was checked 04/15/2017 and that was 0.048. The PSA prior was 01/01/2017 and that was 0.121. Allergies Coded Allergies: No Known Allergies (Unverified , 06/27/16) Home Medications Scheduled Aspirin Enteric Coated (Ecotrin Or Generic *), 81 MG PO QPM Atorvastatin (Lipitor), 80 MG PO QPM Dutasteride (Avodart), 1 CAP PO DAILY Garlic (Garlic), 1,000 MG PO QAM Glyburide (Micronase), 10 MG PO BID Hctz/Losartan (Hyzaar 12.5MG/100MG), 1 TAB PO QAM Latanoprost (Xalatan 0.005% Oph Ilana), 1 DROPS OPL HS Multivitamin (Multivitamin), 1 TAB PO QAM Tamsulosin Hcl (Flomax), 0.4 MG PO BID Review of Systems Gastrointestinal: Symptoms: WNL Oral: Symptoms: Painless Ulcers Respiratory: Symptoms: WNL Other Respiratory: congestion Urinary: Symptoms: WNL Comments: occasional drip with urgency Skin: Symptoms: No Problems Physical Exam Vital Signs Date Time Temp Pulse Resp B/P (MAP) Pulse Ox O2 Delivery O2 Flow Rate FiO2 05/02/17 10:20 36.6 81 20 135/79 99 Fatigue: None General Appearance: no apparent distress Eyes: normal inspection, EOMI ENT: hearing grossly normal, + pertinent finding (nasal congestion) Neck: no adenopathy Respiratory/Chest: lungs clear, no respiratory distress, no accessory muscle use Cardiovascular: regular rate, rhythm, no gallop, no murmur Abdomen: non tender, soft, no organomegaly Extremities: no pedal edema Neurologic/Psychiatric: no motor/sensory deficits, alert, normal mood/affect Pain Management Patient Reports Pain: No Pain Location: None Patient Preferred Pain Scale: 0 - 10 Initial Pain Intensity: 0.0 Pain Management Plan He denies pain therefore requires no pain management. Laboratory Laboratory Results: not applicable Pathology Pathology Results: not applicable Imaging Imaging Studies: not applicable Assessment & Plan Plan: Because his AUA score is excellent and he did not see any difference with decreasing from 2 pills to 1, I have asked him to discontinue the Flomax. If this is what is causing his nasal congestion these symptoms should resolve. In discussing further what he has been doing to help his problem with congestion he stated that he has been using Afrin nasal spray. When questioned how often he uses Afrin. He stated that he uses it frequently throughout the day. I reviewed with him that this medication can have a rebound effect. He should only use it twice a day. It is hoped that with stopping the Flomax he'll be able to not use the Afrin any further. He should not use this more than twice a day. I also discussed with him that should he have urinary symptoms and have to restart the Flomax he could possibly try [id number] medication such as Zyrtec for nasal congestion. I've also asked him to discuss this further with his physician Dr. Frantz Brown. He'll continue regular follow-up with Dr. Lassiter. We asked him to return to our office in 1 year. Continue recheck PSAs every 6 months. Total Time In Follow-Up I spent 25 minutes speaking to the patient and performing his examination. He spent 15 minutes reviewing information in completing this note. Copy To Salbador Watkins M.D.; Michele Lassiter MD, Urology
== END | disposition home or self-care (01) ==
LOC: C.ONC 09:54
PROVIDERS: ATTEND Physician Assistant Medical
DX: Z08 Encounter for follow-up examination after completed treatment for malignant neoplasm (principal); Z92.3 Personal history of irradiation; Z85.46 Personal history of malignant neoplasm of prostate

== ENCOUNTER → 2017-08-13 | Outpatient (CLI) | payer OTHER ==
[2017-08-13 13:03] LABS: HEMOGLOBIN A1C 8.8 % (4.5-5.6)
[2017-08-13 13:05] LABS: BLOOD UREA NITROGEN 17 mg/dl (7-18); CALCIUM 8.8 mg/dl (8.5-10.1); CARBON DIOXIDE 30 mmol/L (21-32); CHOLESTEROL 126 mg/dl (0-200); CREATININE 1.19 mg/dl (0.60-1.40); GLUCOSE 136 mg/dl (70-99); POTASSIUM 3.8 mmol/L (3.5-5.1); SODIUM 139 mmol/L (136-145)
[2017-08-13 13:08] LABS: LDL CHOLESTEROL (DIRECT) 78 mg/dl
== END | disposition home or self-care (01) ==
LOC: C.LABSPEC 12:34
PROVIDERS: ATTEND Internal Medicine
DX: E11.65 Type 2 diabetes mellitus with hyperglycemia (principal); I10 Essential (primary) hypertension; E78.5 Hyperlipidemia, unspecified

== ENCOUNTER → 2017-11-03 | Outpatient (CLI) | payer OTHER ==
--- NOTE | 2017-11-03 13:29 | DIAGNOSTIC IMAGING REPORT ---
KUB HISTORY: N20.0 Calculus of [id number] Weak urinary stream COMPARISON: KUB 01/01/2017. FINDINGS: The bowel gas pattern is unremarkable. There are no dilated loops of small bowel to suggest an obstruction. There are few punctate stones within the left kidney, unchanged. There is a stable 4 mm stone within the upper pole of the right kidney. No ureteral calculi. Stable calcifications in the deep pelvis consistent with phleboliths. Multiple brachytherapy seeds again noted within the prostate gland. No pneumoperitoneum or pneumatosis. IMPRESSION: 1. Stable bilateral nephrolithiasis. 2. No ureteral calculi identified. Electronically signed by: Jim Lane M.D. 11/03/2017 1:27 PM Dictated Date/Time: 11/03/2017 1:26 PM
== END | disposition home or self-care (01) ==
LOC: C.RAD 12:36
PROVIDERS: ATTEND Urology
DX: N20.0 Calculus of kidney (principal); R39.12 Poor urinary stream

== ENCOUNTER → 2017-11-03 | Outpatient (CLI) | payer OTHER ==
[2017-11-03 15:38] LABS: BLOOD UREA NITROGEN 22 mg/dl (7-18); CREATININE 1.16 mg/dl (0.60-1.40)
== END | disposition home or self-care (01) ==
LOC: C.LABSPEC 13:50
PROVIDERS: ATTEND Urology
DX: N20.0 Calculus of kidney (principal); R39.12 Poor urinary stream

== ENCOUNTER 2021-10-23 18:02 | Observation (INO) ==
--- NOTE | 2021-10-23 18:11 | ED Triage Note ---
Date of Service October 23, 2021 History of Present Illness This patient was briefly evaluated while in triage. An abbreviated physical exam was performed. This patient is a 81-year-old Male with past medical history of aortic stenosis, cardiomyopathy, prostate cancer, who presents to the ED for evaluation of forgetfulness. Pt. has been forgetting what he was doing, even a few minutes after he did it (such as cooking hot dogs on the grill or mowing the lawn). Symptoms started around 3pm. Physical Exam VITALS: Vitals are noted on the nurse's note and reviewed by myself. GENERAL: This is a 81 year old white male, in no acute distress, nondiaphoretic, well-developed well-nourished. SKIN: No rashes, edema, ecchymosis HEAD: Normocephalic atraumatic. NECK: No JVD. LUNGS: No retractions or accessory muscle use. MUSCULOSKELETAL: Normal gait. NEURO: Patient was alert and oriented to person place. Believes the year to be 2009. Does not know president. No focal neurological deficits. Initial orders for labs and / or imaging were placed and patient was placed in the waiting area until a bed is available. Please see further documentation for the full ED course.
[2021-10-23] MEDS ORDERED: SODIUM CHLORIDE 0.9% 500 ML IV ONE (18:42)
[2021-10-23 18:47] LABS: Basophils # (auto) 0.02 K/uL (0-0.2); Basophils % (auto) 0.3 %; Eosinophils # (auto) 0.13 K/uL (0-0.50); Eosinophils % (auto) 1.9 %; Hematocrit (blood only) 35.1 % (40.1-51.0); Hemoglobin 11.8 g/dl (14.0-18.0); Immature Granulocytes # (auto) 0.03 K/uL (0.00-0.02); Immature Granulocytes % (auto) 0.4 %; Lymphocytes # (auto) 0.98 K/uL (1.2-3.4); Lymphocytes % (auto) 14.6 %; Mean Corpuscular Hgb Conc 33.6 g/dL (32.0-36.0); Mean Corpuscular Volume 92.1 fL (80.0-100.0); Mean Platelet Volume 10.3 fL (9.4-12.4); Monocytes # (auto) 0.46 K/uL (0.24-0.82); Monocytes % (auto) 6.9 %; Neutrophils # (auto) 5.09 K/uL (1.4-6.5); Neutrophils % (auto) 75.9 %; Platelet Count 162 K/uL (130-400); RDW Coefficient of Variation 13.2 % (11.5-14.5); RDW Standard Deviation 44.5 fL (36.4-46.3); Red Blood Count 3.81 M/uL (4.63-6.08); White Blood Count 6.71 K/ul (4.8-10.8)
--- NOTE | 2021-10-23 18:51 | XRay Report ---
XR chest 1V portable HISTORY: Confusion. Stroke Like Symptoms COMPARISON: Chest 12/27/2020. FINDINGS: The lungs are clear. Cardiac silhouette is normal in size. No pleural effusions. No pneumot horax. Calcifications again noted within the aortic knob. IMPRESSION: No acute process. ACT 112: Negative or not required by law. Electronically signed by: Jim Lane M.D. 10/23/2021 6:49 PM
[2021-10-23 19:02] LABS: INR 1.1 (0.9-1.1); Partial Thromboplastin Ratio 0.9; Partial Thromboplastin Time 25.5 Seconds (21.0-31.0); Prothrombin Time 11.2 Seconds (9.0-12.0)
[2021-10-23 19:07] LABS: Albumin Globulin Ratio 1.4 (0.9-2); Albumin Level 4.2 gm/dl (3.4-5.0); BUN Creatinine Ratio 21.1 (10-20); Bilirubin,Total 0.6 mg/dl (0.2-1.0); Calcium 9.6 mg/dl (8.5-10.1); Creatinine Clr Calc Pharmacy 31.3 ml/min; Est GFR (African American) 38.7 ml/min; Est GFR (Non-African American) 33.4 ml/min; Magnesium 1.8 mg/dl (1.7-2.4); Phosphorus 3.4 mg/dl (2.5-4.9); Potassium 3.8 mmol/L (3.5-5.1); Total Protein 7.2 gm/dl (6.0-8.3)
[2021-10-23 19:12] LABS: Troponin I High Sensitivity 35.2 pg/ml (0-20)
[2021-10-23] MEDS ORDERED: OPTIRAY 320 125ml IV ONE (20:01)
--- NOTE | 2021-10-23 20:16 | Emergency Department Note ---
Impression & Plan Amnesia, HONORIO (acute kidney injury), Elevated troponin ED Provider Note NAME: CRISTINA HERR AGE: 81 SEX: M ARRIVES VIA: Walk-In INFORMANT: Patient, family ED PROVIDER(S): Hector Higginbotham MD CHIEF COMPLAINT: Acute memory loss PLAN: Disposition: Admit MEDICAL DECISION MAKING: The patient is a pleasant 81-year-old gentleman with a past medical history of hyperlipidemia, hypertension, cardiomyopathy, aortic stenosis, prostate cancer, who presents emergency department [place] by his and daughter for evaluation of acute onset memory impairment which they noticed around 3 PM however his reports that prior to that they had not really interacted much since around 1230 when they finished lunch to outside in the yard work. She reports that there has been doing yard work when he was riding the light ride on lawnmower and when they went back inside he then after with a just finished doing and could not recall working on the yard and mowing the lawn. He further cannot recall other details which she normally is aware of. They deny the patient having any history of memory issues like this in the past. Denies any recent episodes where he would get lost on familiar route. Denies any fevers, chills, cough, congestion, GI or symptoms. On arrival, the patient is no acute distress, afebrile with stable vital signs. He appears clinically dry. He now reports he recalls working out in the yard but denies remembering his episode of memory impairment where he did not remember resulting in his emergency department visit. Otherwise a speech is fluent without overt aphasia. He has no focal motor or sensory deficits otherwise. Last known well was at 1230 and so no indication for stroke activation/tPA. EKG without overt acute ischemia. Chest x-ray negative for acute cardiopulmonary process. WBC and platelets within normal limits. H/H 11.8/35.1 approximate 2 though slightly decreased from prior range. Glucose is 245 with Chemistry without metabolic acidosis. Creatinine is 1.8 with BUN/creatinine> 20 consistent with the patient's clinically dry appearance. Electrolytes and LFTs without significant abnormality. High-sensitivity troponin 35.2, nonspecific. CT of the head and CT of the head and neck were performed and were negative for acute findings. Patient and family agree with plan for admission for further evaluation of possible stroke Case was discussed with Dr. Rivera, [facility] hospitalist, who will evaluate the patient for admission. Triage Nursing notes reviewed and agree them. Prior medical records reviewed Vital Signs: reviewed and remarkable for no significant abnormalities Differential diagnosis: Infection, dehydration, metabolic abnormality, hypo/hyperglycemia, electrolyte disturbance, anemia, hypoxia, cardiac sources, intracerebral event, toxicologic, neurologic, as well as other pathologies. ER treatment provided: See below. Diagnostics interpreted by me: ECG: Sinus rhythm, 75 bpm, PVCs, nonspecific ST and T wave abnormality, no overt ST elevation or depression, QTC 444, QRS 100 Cardiac Monitoring: An order for continuous cardiac monitoring was placed and demonstrated sinus rhythm, 75 bpm, PVCs. Laboratory studies: See below Imaging studies: See below Consultation(s): Case was discussed with Dr. Rivera, [facility] hospitalist, who will evaluate the patient for admission. HPI: The patient is a pleasant 81-year-old gentleman with a past medical history of hyperlipidemia, hypertension, cardiomyopathy, aortic stenosis, prostate cancer, who presents emergency department [place] by his and daughter for evaluation of acute onset memory impairment which they noticed around 3 PM however his reports that prior to that they had not really interacted much since around 1230 when they finished lunch to outside in the yard work. She reports that there has been doing yard work when he was riding the light ride on [employer] and when they went back inside he then after with a just finished doing and could not recall working on the yard and mowing the lawn. He further cannot recall other details which she normally is aware of. They deny the patient having any history of memory issues like this in the past. Denies any recent episodes where he would get lost on familiar route. Denies any fevers, chills, cough, congestion, GI or symptoms. ROS: See above HPI for pertinent positives & negatives. A total of 10 systems reviewed and were otherwise negative. VITALS:See Below PHYSICAL EXAMINATION: GENERAL: Awake, alert, well-appearing, in no distress HENT: Normocephalic, atraumatic. Oropharynx with dry mucous membranes and otherwise unremarkable. EYES: Normal conjunctiva. Sclera non-icteric. EOMI. No nystamgus. PEARRL. NECK: Supple. No nuchal rigidity. FROM. No JVD. RESPIRATORY: Clear to auscultation. CARDIAC: Regular rate, normal rhythm. Extremities warm and well perfused. Pulses equal. ABDOMEN: Soft, non-distended. No tenderness to palpation. No rebound or guarding. No masses. RECTAL: Deferred. MUSCULOSKELETAL: Chest examination reveals no tenderness. The back is symmetrical on inspection without obvious abnormality. There is no CVA tenderness to palpation. No joint edema. LOWER EXTREMITIES: Calves are equal size bilaterally and non-tender. No edema. No discoloration. NEURO: Normal sensorium. No sensory or motor deficits noted. 5/5 strength and SILT x 4 extremities. Cerebellar function intact including todxua-[id number], alternating palms, gprh-ly-[id number]. SKIN: No rash or jaundice noted. ED COURSE: Critical Care: I have personally spent greater than 35 minutes of critical care time in the direct management of this patient. This includes bedside care, interpretation of diagnostic studies, and testing, discussion with consultants, patient, and family members, and other required patient management activities. This 35 minutes is in excess of all separately billable procedures. Hector Higginbotham MD Past Med/Surg History Medical History Aortic stenosis CAD (coronary artery disease) Cardiac murmur no previous echo; no manager field investigations Cardiomyopathy DM type 2 (diabetes mellitus, type 2) Elevated serum creatinine Glaucoma Hernia, inguinal, left History of nephrolithiasis History of prostate cancer dx 2015; s/p brachytherapy HLD (hyperlipidemia) HTN (hypertension) Hypertension Kidney stones Right ureteral stone Surgical History History of brachytherapy History of colonoscopy History of herniorrhaphy S/P left inguinal hernia repair (09/23/19) Open Direct Left Inguinal Hernia Repair with Mesh, removal lipoma of cord Dr. Greenberg 09/23/19 Family History Mother Breast cancer Father Cancer Brother Diabetes Cancer Sister Diabetes Other No family history of adverse response to anesthesia Social History Smoking Status: Former smoker Tobacco Type: Cigarettes Second Hand Exposure: No; Do You Dip or Chew Tobacco: No; Tobacco Cessation Education Requested by Patient: No Hx Alcohol Use: No Hx Substance Use: No Preferred Language: Georgian Communication Ability: Effective Visual Impairment: No Limitations Surgical Technology Instructor Required: No Beliefs That Will Affect Care: None marital status: Current Living Situation: Spouse current occupational status: retired Other Information That Helps Us Care for You: No Feels Safe at Home: Yes Safety Concerns: Feels Safe At This Time Assistive Devices: None Allergies Allergies Allergy/AdvReac Type Severity Reaction Status Date / Time No Known Allergies Allergy Verified 10/23/21 19:45 Home Meds Home Medications Medication Instructions Recorded Confirmed aspirin 81 mg tablet,delayed 81 mg PO PM 10/13/18 10/23/21 release atorvastatin 80 mg tablet 80 mg PO PM 05/06/19 10/23/21 latanoprost 0.005 % eye drops 1 drops OPL HS 05/06/19 10/23/21 cholecalciferol (vitamin D3) 50 50 mcg PO QAM 09/20/19 10/23/21 mcg (2,000 unit) capsule (Vitamin D3) garlic 1,000 mg capsule 1,000 mg PO QAM 09/20/19 10/23/21 glipizide 5 mg tablet 10 mg PO BID 12/13/20 10/23/21 hydrochlorothiazide 25 mg tablet 25 mg PO QAM 12/13/20 10/23/21 losartan 100 mg tablet 100 mg PO QAM 12/13/20 10/23/21 metformin 500 mg tablet 500 mg PO BID 12/13/20 10/23/21 lactobacillus combination no.4 3 3,000 mmu cells PO DAILY 05/16/21 10/23/21 billion cell capsule (Probiotic) rxecphkw-uau-rgrpd acid 0.4 1 tab PO DAILY 10/23/21 10/23/21 mg-lycopene 300 mcg-lutein 250 mcg tablet (Centrum Silver) Previous Rx's Medication Instructions Recorded alfuzosin 10 mg tablet,extended 10 mg PO DAILY #90 tabs 06/26/21 release 24 hr metoprolol succinate 25 mg 25 mg PO DAILY #30 tabs 07/03/21 tablet,extended release 24 hr Results & Data (ED) Vital Signs Vital Signs - 24 hr 10/23/21 18:08 Temperature 36.4 C L Temperature Source Temporal Artery Scan Pulse Rate 84 Respiratory Rate 18 Respiratory Effort / Characteristics Non-Labored Respiratory Depth Normal Respiratory Pattern Regular Blood Pressure 145/84 H Blood Pressure Mean 104 Pulse Oximetry 96 Oxygen Delivery Method Room Air Sepsis Recent Fever Within 48 Hours No Sepsis New/Unexplained Change in Mental Status No Sepsis Action Taken by Nursing No Action Required Laboratory Data Attestation: I reviewed the patient's lab results. Result diagrams: 10/23/21 18:23 10/23/21 18:23 Lab Results 10/23/21 10/23/21 10/23/21 Range/Units 18:23 18:23 18:23 WBC 6.71 (4.8-10.8) K/ul RBC 3.81 L (4.63-6.08) M/uL Hgb 11.8 L (14.0-18.0) g/dl Hct 35.1 L (40.1-51.0) % MCV 92.1 (80.0-100.0) fL MCH 31.0 (25.0-34.0) pg MCHC 33.6 (32.0-36.0) g/dL RDW Std Deviation 44.5 (36.4-46.3) fL RDW Coeff of Mark[place] 13.2 (11.5-14.5) % Plt Count 162 (130-400) K/uL MPV 10.3 (9.4-12.4) fL Immature Gran % (Auto) 0.4 % Neut % (Auto) 75.9 % Lymph % (Auto) 14.6 % [place] % (Auto) 6.9 % Eos % (Auto) 1.9 % Baso % (Auto) 0.3 % Neut # (Auto) 5.09 (1.4-6.5) K/uL Lymph # (Auto) 0.98 L (1.2-3.4) K/uL [place] # (Auto) 0.46 (0.24-0.82) K/uL Eos # (Auto) 0.13 (0-0.50) K/uL Baso # (Auto) 0.02 (0-0.2) K/uL Immature Gran # (Auto) 0.03 H (0.00-0.02) K/uL PT 11.2 (9.0-12.0) Seconds INR 1.1 (0.9-1.1) APTT 25.5 (21.0-31.0) Seconds PTT Ratio 0.9 Sodium (136-145) mmol/L Potassium (3.5-5.1) mmol/L Chloride (98-107) mmol/L Carbon Dioxide (21-32) mmol/L Anion Gap (3-11) BUN (6-23) mg/dl Creatinine (0.6-1.4) mg/dl Est Cr Clr Drug Dosing ml/min Est GFR ( Amer) ml/min Est GFR (Non-Af Amer) ml/min BUN/Creatinine Ratio (10-20) Glucose (70-99(Fasting)) mg/dl Calcium (8.5-10.1) mg/dl Phosphorus (2.5-4.9) mg/dl Magnesium (1.7-2.4) mg/dl Total Bilirubin (0.2-1.0) mg/dl AST (13-39) U/L ALT (7-52) U/L Alkaline Phosphatase (34-104) U/L Troponin I High Sens (0-20) pg/ml Total Protein (6.0-8.3) gm/dl Albumin (3.4-5.0) gm/dl Globulin (2.5-4.0) gm/dl Albumin/Globulin Ratio (0.9-2) SARS-CoV-2, RNA, NAAT (NEGATIVE) Blood Type A Positive Antibody Screen NEGATIVE 10/23/21 10/23/21 10/23/21 Range/Units 18:23 18:23 19:44 WBC (4.8-10.8) K/ul RBC (4.63-6.08) M/uL Hgb (14.0-18.0) g/dl Hct (40.1-51.0) % MCV (80.0-100.0) fL MCH (25.0-34.0) pg MCHC (32.0-36.0) g/dL RDW Std Deviation (36.4-46.3) fL RDW Coeff of Markell (11.5-14.5) % Plt Count (130-400) K/uL MPV (9.4-12.4) fL Immature Gran % (Auto) % Neut % (Auto) % Lymph % (Auto) % [place] % (Auto) % Eos % (Auto) % Baso % (Auto) % Neut # (Auto) (1.4-6.5) K/uL Lymph # (Auto) (1.2-3.4) K/uL [place] # (Auto) (0.24-0.82) K/uL Eos # (Auto) (0-0.50) K/uL Baso # (Auto) (0-0.2) K/uL Immature Gran # (Auto) (0.00-0.02) K/uL PT (9.0-12.0) Seconds INR (0.9-1.1) APTT (21.0-31.0) Seconds PTT Ratio Sodium 139 (136-145) mmol/L Potassium 3.8 (3.5-5.1) mmol/L Chloride 104 (98-107) mmol/L Carbon Dioxide 28 (21-32) mmol/L Anion Gap 7 (3-11) BUN 39 H (6-23) mg/dl Creatinine 1.85 H (0.6-1.4) mg/dl Est Cr Clr Drug Dosing 31.3 ml/min Est GFR ( Amer) 38.7 ml/min Est GFR (Non-Af Amer) 33.4 ml/min BUN/Creatinine Ratio 21.1 H (10-20) Glucose 245 H (70-99(Fasting)) mg/dl Calcium 9.6 (8.5-10.1) mg/dl Phosphorus 3.4 Cancelled (2.5-4.9) mg/dl Magnesium 1.8 (1.7-2.4) mg/dl Total Bilirubin 0.6 (0.2-1.0) mg/dl AST 20 (13-39) U/L ALT 19 (7-52) U/L Alkaline Phosphatase 74 (34-104) U/L Troponin I High Sens 35.2 H (0-20) pg/ml Total Protein 7.2 (6.0-8.3) gm/dl Albumin 4.2 (3.4-5.0) gm/dl Globulin 3.0 (2.5-4.0) gm/dl Albumin/Globulin Ratio 1.4 (0.9-2) SARS-CoV-2, RNA, NAAT NEGATIVE (NEGATIVE) Blood Type Antibody Screen Administered Medications Lactated Ringer's (Lr) 1,000 mls @ 100 mls/hr IV .Q10H DAPHNEY Stop: 10/24/21 09:43 Last Admin: 10/24/21 00:07 Dose: 100 mls/hr Documented By: TIKI Magnesium Sulfate/Dextrose (Magnesium Sulfate / D5w) 1 gm in 100 mls @ 50 mls/hr IV Q2H DAPHNEY Stop: 10/24/21 03:43 Last Infusion: 10/24/21 03:00 Dose: 0 mls/hr Documented By: Admin: 10/24/21 02:04 Dose: 50 mls/hr Documented By: Infusion: 10/24/21 02:04 Dose: 50 mls/hr Documented By: Admin: 10/24/21 00:07 Dose: 50 mls/hr Documented By: TIKI Discontinued Medications Gadobutrol (Gadobutrol 65ml Vial) 7.5 ml IV ONCE ONE Stop: 10/24/21 00:52 Last Admin: 10/24/21 00:51 Dose: 7.5 ml Documented By: RONEL Sodium Chloride (Nss) 500 mls @ 999 mls/hr IV .Q31M ONE Stop: 10/23/21 19:12 Last Infusion: 10/23/21 23:22 Dose: 0 mls/hr Documented By: Admin: 10/23/21 20:07 Dose: 999 mls/hr Documented By: ANN Sodium Chloride (Nss) 500 mls @ 125 mls/hr IV .Q4H DAPHNEY Stop: 11/22/21 20:44 Last Infusion: 10/24/21 00:10 Dose: 0 mls/hr Documented By: Admin: 10/23/21 22:11 Dose: 125 mls/hr Documented By: ANN Insulin Glargine (Lantus Per Unit Charge) 7 units SQ NOW STA Stop: 10/23/21 21:21 Last Admin: 10/23/21 23:14 Dose: 7 units Documented By: TIKI Co-signed By: LIVIER Ioversol (Optiray 320 125ml) 120 ml IV ONCE ONE Stop: 10/23/21 20:02 Last Admin: 10/23/21 20:04 Dose: 120 ml Documented By: GATO Imaging Data Radiologist's Impression: Chest X-Ray 10/23/21 18:11 XR chest 1V portable HISTORY: Confusion. Stroke Like Symptoms COMPARISON: Chest 12/27/2020. FINDINGS: The lungs are clear. Cardiac silhouette is normal in size. No pleural effusions. No pneumothorax. Calcifications again noted within the aortic knob. IMPRESSION: No acute process. ACT 112: Negative or not required by law. Electronically signed by: Jim Lane M.D. 10/23/2021 6:[address] 10/23/21 18:[address] DOSE: 1078.23 mGy.cm HISTORY: Altered mental status. Amnesia. Stroke Like Symptoms TECHNIQUE: Multiaxial CT images of the head were performed without the use of intravenous contrast. Automated exposure control was utilized for this study. A dose lowering technique was utilized adhering to the principles of ALARA. Comparison: None. Findings: The paranasal sinuses and mastoid air cells are clear. The calvarium and skull base are intact. There is no mass, hematoma, midline shift, acute infarct. White matter hypodensity is nonspecific but suggestive of microvascular ischemic change. The ventricles and sulci demonstrate mild age-related involutional changes. Prominence of the lateral ventricles is likely due to central volume loss. Impression: No acute intracranial abnormality. Atrophy and microvascular ischemic changes. ACT 112: Negative or not required by law. Electronically signed by: Jim Lane M.D. 10/23/2021 8:14 PM Head CTA 10/23/21 18:11 HEAD & NECK CTA HISTORY: Amnesia. Stroke Like Symptoms TECHNIQUE: Multiaxial CT images of the head were performed following the intravenous administration of contrast to evaluate the major cerebral vessels. Multiaxial CT images of the neck were also performed following the intravenous administration of contrast to evaluate the major cervical vessels. Maximum intensity projection images were also obtained. A dose lowering technique was utilized adhering to the principles of ALARA. COMPARISON: Noncontrast head CT 10/23/2021. FINDINGS: There is no mass, hematoma, midline shift, or acute infarct. Visualized intracranial internal carotid arteries, distal vertebral arteries, and basilar artery are widely patent. There is no significant stenosis, occlusion, or aneurysm seen within the bilateral ACAs, MCAs, or child welfare director. The major dural venous sinuses are patent. Mild calcified plaque within the bilateral carotid siphons. The aortic arch and proximal great vessels are widely patent. There is no significant stenosis, occlusion, or dissection identified within the bilateral common carotid, internal carotid, or vertebral arteries. Mild to moderate calcified plaque within the bilateral carotid bifurcations. IMPRESSION: 1. No significant stenosis, occlusion, or aneurysm within the [place]. 2. No significant stenosis, occlusion, or dissection identified within the carotid or vertebral arteries. ACT 112: Negative or not required by law. Electronically signed by: Jim Lane M.D. 10/23/2021 8:21 PM Neck CTA 10/23/21 18:11 HEAD & NECK CTA HISTORY: Amnesia. Stroke Like Symptoms TECHNIQUE: Multiaxial CT images of the head were performed following the intravenous administration of contrast to evaluate the major cerebral vessels. Multiaxial CT images of the neck were also performed following the intravenous administration of contrast to evaluate the major cervical vessels. Maximum intensity projection images were also obtained. A dose lowering technique was utilized adhering to the principles of ALARA. COMPARISON: Noncontrast head CT 10/23/2021. FINDINGS: There is no mass, hematoma, midline shift, or acute infarct. Visualized intracra nial internal carotid arteries, distal vertebral arteries, and basilar artery are widely patent. There is no significant stenosis, occlusion, or aneurysm seen within the bilateral ACAs, MCAs, or child welfare director. The major dural venous sinuses are patent. Mild calcified plaque within the bilateral carotid siphons. The aortic arch and proximal great vessels are widely patent. There is no significant stenosis, occlusion, or dissection identified within the bilateral common carotid, internal carotid, or vertebral arteries. Mild to moderate calcified plaque within the bilateral carotid bifurcations. IMPRESSION: 1. No significant stenosis, occlusion, or aneurysm within the [place]. 2. No significant stenosis, occlusion, or dissection identified within the carotid or vertebral arteries. ACT 112: Negative or not required by law. Electronically signed by: Jim Lane M.D. 10/23/2021 8:21 PM Discharge Plan Visit Data Chief Complaint: Altered Mental Status Stated Complaint: ACUTE MEMORY LOSS, HEART ISSUES, SPEECH ISSUES ED Provider: Hector Higginbotham Discharge Problem: Amnesia, HONORIO (acute kidney injury), Elevated troponin Patient Disposition: Admitted As Inpatient Discharge Instructions Interventions: ED Discharge Assessment Last Done: 10/23/21 23:40
--- NOTE | 2021-10-23 20:16 | CT Scan Report ---
HEAD CT NONCONTRAST CT DOSE: 1078.23 mGy.cm HISTORY: Altered mental status. Amnesia. Stroke Like Symptoms TECHNIQUE: Multiaxial CT images of the head were performed without the use of intravenous contrast. A utomated exposure control was utilized for this study. A dose lowering technique was utilized adheri ng to the principles of ALARA. Comparison: None. Findings: The paranasal sinuses and mastoid air cells are clear. The calvarium and skull base are int act. There is no mass, hematoma, midline shift, acute infarct. White matter hypodensity is nonspecifi c but suggestive of microvascular ischemic change. The ventricles and sulci demonstrate mild age-rela kimmy involutional changes. Prominence of the lateral ventricles is likely due to central volume loss. Impression: No acute intracranial abnormality. Atrophy and microvascular ischemic changes. ACT 112: Negative or not required by law. Electronically signed by: Jim Lane M.D. 10/23/2021 8:14 PM
--- NOTE | 2021-10-23 20:24 | CT Scan Report ---
HEAD & NECK CTA HISTORY: Amnesia. Stroke Like Symptoms TECHNIQUE: Multiaxial CT images of the head were performed following the intravenous administration o f contrast to evaluate the major cerebral vessels. Multiaxial CT images of the neck were also perform ed following the intravenous administration of contrast to evaluate the major cervical vessels. Maxim um intensity projection images were also obtained. A dose lowering technique was utilized adhering to the principles of ALARA. COMPARISON: Noncontrast head CT 10/23/2021. FINDINGS: There is no mass, hematoma, midline shift, or acute infarct. Visualized intracranial internal carotid arteries, distal vertebral arteries, and basilar artery are widely patent. There is no significant s tenosis, occlusion, or aneurysm seen within the bilateral ACAs, MCAs, or metal annealer. The major dural venous sinuses are patent. Mild calcified plaque within the bilateral carotid siphons. The aortic arch and proximal great vessels are widely patent. There is no significant stenosis, occ lusion, or dissection identified within the bilateral common carotid, internal carotid, or vertebral arteries. Mild to moderate calcified plaque within the bilateral carotid bifurcations. IMPRESSION: 1. No significant stenosis, occlusion, or aneurysm within the [place]. 2. No significant stenosis, occlusion, or dissection identified within the carotid or vertebral arter ies. ACT 112: Negative or not required by law. Electronically signed by: Jim Lane M.D. 10/23/2021 8:21 PM
--- NOTE | 2021-10-23 20:24 | CT Scan Report ---
HEAD & NECK CTA HISTORY: Amnesia. Stroke Like Symptoms TECHNIQUE: Multiaxial CT images of the head were performed following the intravenous administration o f contrast to evaluate the major cerebral vessels. Multiaxial CT images of the neck were also perform ed following the intravenous administration of contrast to evaluate the major cervical vessels. Maxim um intensity projection images were also obtained. A dose lowering technique was utilized adhering to the principles of ALARA. COMPARISON: Noncontrast head CT 10/23/2021. FINDINGS: There is no mass, hematoma, midline shift, or acute infarct. Visualized intracranial internal carotid arteries, distal vertebral arteries, and basilar artery are widely patent. There is no significant s tenosis, occlusion, or aneurysm seen within the bilateral ACAs, MCAs, or traffic engineering director. The major dural venous sinuses are patent. Mild calcified plaque within the bilateral carotid siphons. The aortic arch and proximal great vessels are widely patent. There is no significant stenosis, occ lusion, or dissection identified within the bilateral common carotid, internal carotid, or vertebral arteries. Mild to moderate calcified plaque within the bilateral carotid bifurcations. IMPRESSION: 1. No significant stenosis, occlusion, or aneurysm within the [place]. 2. No significant stenosis, occlusion, or dissection identified within the carotid or vertebral arter ies. ACT 112: Negative or not required by law. Electronically signed by: Jim Lane M.D. 10/23/2021 8:21 PM
[2021-10-23] MEDS ORDERED: SODIUM CHLORIDE 0.9% 500 ML IV SCH (20:45)
[2021-10-23] MEDS ORDERED: LANTUS PER UNIT CHARGE SQ STA (21:20)
--- NOTE | 2021-10-23 22:00 | History & Physical Report ---
Date of Service October 23, 2021 Assessment & Plan (1) Amnesia: Plan: Patient with about 6-7 hours of amnesia not associated with any other neurological deficits. - DDX: Heat related injury vs. Transient Global Amnesia vs. 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 - as above replace intravascular with LR overnight - Hold ARB - Hold HCTZ - Follow in am - avoid further nephrotoxic medications (3) Cardiac murmur: Plan: Severe Aortic stenosis - awaiting evaluation with CT surgeon in [place] -maintain euvolemia (4) DM type 2 (diabetes mellitus, type 2): Plan: Hold Metformin Hold Glipizide Lantus 7 units now and then BID Aspart sliding scale without GAP (5) Elevated troponin: Plan: Checked routinely by EMD He is without chest pain or ECG changes Likely related to his underlying cardiac function- likely type II demand Recheck now and trend (6) Prostate cancer: Plan: HX of remains on Alfuzosin- continue (7) Renal insufficiency: Plan: CKD III as above (8) Cardiomyopathy: Plan: NICM likely related to DM and HTN - Hold ARB as above - Continue BB (9) CAD (coronary artery disease): Plan: Non-obstructive CAD LAD - continue asa - continue BB - continue statin - Cath 07/20 (10) Anemia: Plan: unspecified HGB 11.8 usually in the 13 range denies any blood loss or change in stools - MCV 92 - RDW 13.2 - no record of EGD/COLO in system- follow History of Present Illness Primary Care Provider: Octavia Camp MD 81 YOM with medical history of: exertional chest pain, Aortic Stenosis (severe- pending EVAL 11/05/21), CM(EF 35-40%), prostate cancer (implanted seeds IMRT/IGRT 2016), DM, HLD, non-obstructive CAD (cath 07/20). Patient comes to the EMD today for episode of confusion. This occurred after lunch ~ 1230. Patient remembers eating hot dog for lunch and then going out to mow the grass. He reports that he was riding and cutting the grass and endorses drinking Gatorade while he was outside. He is accompanied by his daughter and . They endorse that he was having trouble remembering what he was doing or what he just did, kept asking "what am I doing right now". This has not happened before. In the EMD the patient had routine labs performed which included a HScTNI, CT of the head, CTA of the head and neck and ECG performed. These were all negative for acute ischemic stroke or bleed. 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 Patient is able to recall events as of current and can now recall what happened in the EMD. He is without any other neurological deficit. Patient will be observed overnight on telemetry and obtain MRI of the brain. WIll lower his glucose level and replete mag. COVID test on admission is: NEGATIVE Allergies Allergy/AdvReac Type Severity Reaction Status Date / Time No Known Allergies Allergy Verified 10/23/21 19:45 Home Medications Medication Instructions Recorded Confirmed Type aspirin 81 mg tablet,delayed 81 mg PO PM 10/13/18 10/23/21 History release atorvastatin 80 mg tablet 80 mg PO PM 05/06/19 10/23/21 History latanoprost 0.005 % eye drops 1 drops OPL HS 05/06/19 10/23/21 History cholecalciferol (vitamin D3) 50 50 mcg PO QAM 09/20/19 10/23/21 History mcg (2,000 unit) capsule (Vitamin D3) garlic 1,000 mg capsule 1,000 mg PO QAM 09/20/19 10/23/21 History glipizide 5 mg tablet 10 mg PO BID 12/13/20 10/23/21 History hydrochlorothiazide 25 mg tablet 25 mg PO QAM 12/13/20 10/23/21 History losartan 100 mg tablet 100 mg PO QAM 12/13/20 10/23/21 History metformin 500 mg tablet 500 mg PO BID 12/13/20 10/23/21 History lactobacillus combination no.4 3 3,000 mmu cells PO DAILY 05/16/21 10/23/21 History billion cell capsule (Probiotic) alfuzosin 10 mg tablet,extended 10 mg PO DAILY #90 tabs 06/26/21 10/23/21 Rx release 24 hr metoprolol succinate 25 mg 25 mg PO DAILY #30 tabs 07/03/21 10/23/21 Rx tablet,extended release 24 hr erwplrjs-onv-hcpai acid 0.4 1 tab PO DAILY 10/23/21 10/23/21 History mg-lycopene 300 mcg-lutein 250 mcg tablet (Centrum Silver) Past Med/Surg History Medical History (Updated 10/23/21 @ 21:54 by MARYANN Díaz) Aortic stenosis CAD (coronary artery disease) Cardiac murmur no previous 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 Greenberg 09/23/19 Family History Mother Breast cancer Father Cancer Brother Diabetes Cancer Sister Diabetes Other No family history of adverse response to anesthesia Social History Smoking Status: Never smoker Tobacco Type: Cigarettes Second Hand Exposure: No; Hx Alcohol Use: No Hx Substance Use: No Preferred Language: Khmer Communication Ability: Effective Visual Impairment: No Limitations Official Court Reporter Required: No Beliefs That Will Affect Care: None marital status: Current Living Situation: Spouse current occupational status: retired Feels Safe at Home: Yes Assistive Devices: None Review of Systems Review of Systems: REVIEW OF SYSTEMS: Constitutional: No fever, sweats or chills Eyes: No diplopia, no worsening or blurred vision ENT: (+) difficulty hearing, no trouble swallowing Respiratory: No cough, sputum, dyspnea at rest or on exertion Cardiovascular: No chest pain, tightness or palpitations Abdomen: No pain, nausea, vomiting, diarrhea or constipation Musculoskeletal: No joint pain, calf pain, swelling Neurologic: (+) memory lapse, No weakness, numbness/tingling, or balance problems Psychiatric: No anxiety or depression Skin: No rash or itch Physical Exam Physical Exam: PHYSICAL EXAM: General: awake, alert, no apparent distress Head: Normocephalic, atraumatic ENT: PERRLA, EOMI, no pharyngeal exudate, mucous membranes moist, poor dentition Neuro: AAO x 3, speech clear and appropriate, strength intact bilaterally 5/5, sensation intact and equal all extremities and dermatomes, no pronator drift Chest: equal rise and fall of the chest, no accessory muscle use, no heaves or thrills, Clear to auscultation, on room air, Cardiac: Regular rate and rhythm, telemetry reviewed- NSR with PVC, skin warm dry, cap refill <3 seconds, peripheral pulses +2 no JVD, Grade IV systolic murmur heard best RSB with radiation to carotids. GI: NABS x 4 quadrants, soft, nontender to palpation, no rebound, guarding or tenderness : Spontaneously voiding, no pain, no CVA tenderness, Extremities: Normal inspection, no peripheral edema or erythema, calfs nontender to palpation Psych: Normal mood and affect Skin: erythematous skin with blanching on the scalp consistent with sun exposure. Results & Data Results & Data ([facility]) Vital Signs (Past 12 Hours) Vital Signs Temp Pulse Resp BP Pulse Ox O2 Del Method 10/23/21 18:08 36.4 C L 84 18 145/84 H 96 Room Air Laboratory Results Abnormal lab results 10/23/21 10/23/21 Range/Units 18:23 18:23 RBC 3.81 L (4.63-6.08) M/uL Hgb 11.8 L (14.0-18.0) g/dl Hct 35.1 L (40.1-51.0) % Lymph # (Auto) 0.98 L (1.2-3.4) K/uL Immature Gran # (Auto) 0.03 H (0.00-0.02) K/uL BUN 39 H (6-23) mg/dl Creatinine 1.85 H (0.6-1.4) mg/dl BUN/Creatinine Ratio 21.1 H (10-20) Glucose 245 H (70-99(Fasting)) mg/dl Troponin I High Sens 35.2 H (0-20) pg/ml Diagnostic Findings Chest X-Ray 10/23/21 18:11 XR chest 1V portable HISTORY: Confusion. Stroke Like Symptoms COMPARISON: Chest 12/27/2020. FINDINGS: The lungs are clear. Cardiac silhouette is normal in size. No pleural effusions. No pneumothorax. Calcifications again noted within the aortic knob. IMPRESSION: No acute process. ACT 112: Negative or not required by law. Electronically signed by: Jim Lane M.D. 10/23/2021 6:[address] 10/23/21 18:[address] DOSE: 1078.23 mGy.cm HISTORY: Altered mental status. Amnesia. Stroke Like Symptoms TECHNIQUE: Multiaxial CT images of the head were performed without the use of intravenous contrast. Automated exposure control was utilized for this study. A dose lowering technique was utilized adhering to the principles of ALARA. Comparison: None. Findings: The paranasal sinuses and mastoid air cells are clear. The calvarium and skull base are intact. There is no mass, hematoma, midline shift, acute infarct. White matter hypodensity is nonspecific but suggestive of microvascular ischemic change. The ventricles and sulci demonstrate mild age-related involutional changes. Prominence of the lateral ventricles is likely due to central volume loss. Impression: No acute intracranial abnormality. Atrophy and microvascular ischemic changes. ACT 112: Negative or not required by law. Electronically signed by: Jim Lane M.D. 10/23/2021 8:14 PM Head CTA 10/23/21 18:11 HEAD & NECK CTA HISTORY: Amnesia. Stroke Like Symptoms TECHNIQUE: Multiaxial CT images of the head were performed following the intravenous administration of contrast to evaluate the major cerebral vessels. Multiaxial CT images of the neck were also performed following the intravenous administration of contrast to evaluate the major cervical vessels. Maximum intensity projection images were also obtained. A dose lowering technique was utilized adhering to the principles of ALARA. COMPARISON: Noncontrast head CT 10/23/2021. FINDINGS: There is no mass, hematoma, midline shift, or acute infarct. Visualized intracranial internal carotid arteries, distal vertebral arteries, and basilar artery are widely patent. There is no significant stenosis, occlusion, or aneurysm seen within the bilateral ACAs, MCAs, or multiplex operator. The major dural venous sinuses are patent. Mild calcified plaque within the bilateral carotid siphons. The aortic arch and proximal great vessels are widely patent. There is no significant stenosis, occlusion, or dissection identified within the bilateral common carotid, internal carotid, or vertebral arteries. Mild to moderate calcified plaque within the bilateral carotid bifurcations. IMPRESSION: 1. No significant stenosis, occlusion, or aneurysm within the white earth of [place]. 2. No significant stenosis, occlusion, or dissection identified within the ca rotid or vertebral arteries. ACT 112: Negative or not required by law. Electronically signed by: Jim Lane M.D. 10/23/2021 8:21 PM Neck CTA 10/23/21 18:11 HEAD & NECK CTA HISTORY: Amnesia. Stroke Like Symptoms TECHNIQUE: Multiaxial CT images of the head were performed following the intravenous administration of contrast to evaluate the major cerebral vessels. Multiaxial CT images of the neck were also performed following the intravenous administration of contrast to evaluate the major cervical vessels. Maximum intensity projection images were also obtained. A dose lowering technique was utilized adhering to the principles of ALARA. COMPARISON: Noncontrast head CT 10/23/2021. FINDINGS: There is no mass, hematoma, midline shift, or acute infarct. Visualized intracranial internal carotid arteries, distal vertebral arteries, and basilar artery are widely patent. There is no significant stenosis, occlusion, or aneurysm seen within the bilateral ACAs, MCAs, or multiplex operator. The major dural venous sinuses are patent. Mild calcified plaque within the bilateral carotid siphons. The aortic arch and proximal great vessels are widely patent. There is no significant stenosis, occlusion, or dissection identified within the bilateral common carotid, internal carotid, or vertebral arteries. Mild to moderate calcified plaque within the bilateral carotid bifurcations. IMPRESSION: 1. No significant stenosis, occlusion, or aneurysm within the white earth of [place]. 2. No significant stenosis, occlusion, or dissection identified within the carotid or vertebral arteries. ACT 112: Negative or not required by law. Electronically signed by: Jim Lane M.D. 10/23/2021 8:21 PM Medications Administered Home Medications aspirin 81 mg tablet,delayed release 81 mg PO PM 10/13/18 [History Confirmed 10/23/21] atorvastatin 80 mg tablet 80 mg PO PM 05/06/19 [History Confirmed 10/23/21] latanoprost 0.005 % eye drops 1 drops OPL HS 05/06/19 [History Confirmed 10/23/21] cholecalciferol (vitamin D3) 50 mcg (2,000 unit) capsule (Vitamin D3) 50 mcg PO QAM 09/20/19 [History Confirmed 10/23/21] garlic 1,000 mg capsule 1,000 mg PO QAM 09/20/19 [History Confirmed 10/23/21] glipizide 5 mg tablet 10 mg PO BID 12/13/20 [History Confirmed 10/23/21] hydrochlorothiazide 25 mg tablet 25 mg PO QAM 12/13/20 [History Confirmed 10/23/21] losartan 100 mg tablet 100 mg PO QAM 12/13/20 [History Confirmed 10/23/21] metformin 500 mg tablet 500 mg PO BID 12/13/20 [History Confirmed 10/23/21] lactobacillus combination no.4 3 billion cell capsule (Probiotic) 3,000 mmu cells PO DAILY 05/16/21 [History Confirmed 10/23/21] alfuzosin 10 mg tablet,extended release 24 hr 10 mg PO DAILY #90 tabs 06/26/21 [Rx Confirmed 10/23/21] metoprolol succinate 25 mg tablet,extended release 24 hr 25 mg PO DAILY #30 tabs 07/03/21 [Rx Confirmed 10/23/21] egigwysl-jsv-lmudb acid 0.4 mg-lycopene 300 mcg-lutein 250 mcg tablet (Centrum Silver) 1 tab PO DAILY 10/23/21 [History Confirmed 10/23/21] Active Medications Sodium Chloride (Nss) 500 mls @ 125 mls/hr IV .Q4H DAPHNEY Stop: 11/22/21 20:44 Discontinued Medications Sodium Chloride (Nss) 500 mls @ 999 mls/hr IV .Q31M ONE Stop: 10/23/21 19:12 Last Admin: 10/23/21 20:07 Dose: 999 mls/hr Documented By: ANN Ioversol (Optiray 320 125ml) 120 ml IV ONCE ONE Stop: 10/23/21 20:02 Last Admin: 10/23/21 20:04 Dose: 120 ml Documented By: GATO ECG Additional Comments: Sinus rhythm with frequent Premature ventricular complexes Nonspecific ST and T wave abnormality Abnormal ECG When compared with ECG of 13-DEC-2020 13:08, Premature ventricular complexes are now Present Code Status & VTE Plan Code Status CODE: FULL VTE: SCDS, Ambulation, ASA VTE Prophylaxis Plan VTE Prophylaxis will be ordered: Yes Supervising Physician Co-Signing Physician Notes Patient seen and examined, chart reviewed, case discussed with MARYANN Monte and I agree with the assessment and plan as above. Patient presents with episode of amnesia starting earlier today after mowing the lawn. No additional neurological deficits. No report of patient being overly warm or sweaty. Exam: afebrile, HD stable Slightly dry MMM, neck supple +S1/S2, regular, 4/6 SONYA at RSB with radiation across the precordium and to bilateral carotids Lungs CTA Abd soft NT/ND Neuro - intact, no deficits Labs and images reviewed. CT/CTA Head and Neck unremarkable Slight elevation in Cr and troponin Assessment/Plan: 81yo male with history of HTN, DM, HLP and presenting with episode of amnesia. ?if heat, possible dehydration, blood pressure fluctuation contributing. Workup thus far largely unremarkable -Check MRI brain -Neuro checks -Gentle IVF -Remainder as above PG Care Time/CCT Total # of Minutes Spent Total Time Spent with Patient: Total time spent is greater than 50% in coordination of care (as documented) at patient's floor/unit and/or counseling patient: Coding Level of Care Code INT OBSERVATION CARE 70M LVL 3 Diagnoses Amnesia R41.3 HONORIO (acute kidney injury) N17.9 Cardiac murmur R01.1 DM type 2 (diabetes mellitus, type 2) E11.9 Elevated troponin R77.8 Prostate cancer C61 Renal insufficiency N28.9 Cardiomyopathy I42.9 CAD (coronary artery disease) I25.10 Anemia D64.9
[2021-10-23] MEDS ORDERED: ACETAMINOPHEN 325 MG TAB PO PRN (23:44)
[2021-10-23] MEDS ORDERED: GLUCOSE 40% GEL 15 GM TUBE PO PRN (23:44)
[2021-10-23] MEDS ORDERED: LACTATED RINGER'S 1,000 ML IV SCH (23:44)
[2021-10-23] MEDS ORDERED: CARBOHYDRATES FOR HYPOGLYCEMIA PO PRN (23:44)
[2021-10-23] MEDS ORDERED: GLUCAGON FOR INJ 1 MG VIAL SQ PRN (23:44)
[2021-10-23] MEDS ORDERED: DEXTROSE 50% 50 ML SYRINGE IV PRN (23:44)
[2021-10-23] MEDS ORDERED: GLUCOSE 10 TAB/TUBE PO PRN (23:44)
[2021-10-23] MEDS ORDERED: ONDANSETRON INJ 2 MG/ML 2 ML VIAL IV PRN (23:44)
[2021-10-24] MEDS: MAGNESIUM SULFATE / D5W 1 GM/100 ML BAG IV SCH ×2 (00:07→02:04)
[2021-10-24 00:46] LABS: Troponin I High Sensitivity 60.8 pg/ml (0-20)
[2021-10-24] MEDS ORDERED: GADOBUTROL 65ML VIAL IV ONE (00:51)
[2021-10-24 05:52] LABS: Basophils # (auto) 0.03 K/uL (0-0.2); Basophils % (auto) 0.5 %; Eosinophils # (auto) 0.16 K/uL (0-0.50); Eosinophils % (auto) 2.7 %; Hematocrit (blood only) 32.3 % (40.1-51.0); Immature Granulocytes # (auto) 0.02 K/uL (0.00-0.02); Immature Granulocytes % (auto) 0.3 %; Lymphocytes # (auto) 1.32 K/uL (1.2-3.4); Lymphocytes % (auto) 22.6 %; Mean Corpuscular Hemoglobin 31.1 pg (25.0-34.0); Mean Corpuscular Hgb Conc 34.1 g/dL (32.0-36.0); Mean Corpuscular Volume 91.2 fL (80.0-100.0); Monocytes # (auto) 0.58 K/uL (0.24-0.82); Monocytes % (auto) 9.9 %; Neutrophils # (auto) 3.73 K/uL (1.4-6.5); Platelet Count 138 K/uL (130-400); RDW Coefficient of Variation 13.2 % (11.5-14.5); Red Blood Count 3.54 M/uL (4.63-6.08); White Blood Count 5.84 K/ul (4.8-10.8)
[2021-10-24 06:24] LABS: Troponin I High Sensitivity 133.7 pg/ml (0-20)
[2021-10-24 07:07] LABS: BUN Creatinine Ratio 19.9 (10-20); Calcium 8.8 mg/dl (8.5-10.1); Creatinine Clr Calc Pharmacy 38.4 ml/min; Est GFR (African American) 49.5 ml/min; Est GFR (Non-African American) 42.7 ml/min; Potassium 3.5 mmol/L (3.5-5.1)
--- NOTE | 2021-10-24 07:18 | Magnetic Resonance Report ---
MRI OF THE BRAIN WITHOUT AND WITH IV CONTRAST CLINICAL HISTORY: transient global amnesia COMPARISON STUDY: Head CT and CTA of October 23, 2021. TECHNIQUE: Utilizing a 1.5 Nicole magnet and dedicated coil, multiplanar, multiecho imaging of the br ain was performed pre and postcontrast administration. IV administration of 7.5 mL of Gadavist contr ast was uneventful. FINDINGS: There are no foci of restricted diffusion to suggest acute infarct. No acute intracranial h emorrhage, midline shift or mass effect is present. Mild ventricular dilatation is due to atrophy. Ba kendell cisterns are patent. There are no extra axial collections. There are multiple small white matter T2 hyperintense foci just to small vessel disease. There is no intracranial mass or pathologic enhanc ement. Flow-voids for the major intracranial vessels are present. Calvarial signal is within normal l imits. Orbits are unremarkable. There is no evidence for sinusitis. There is no mastoid fluid. IMPRESSION: 1. No acute intracranial findings. 2. No intracranial mass or pathologic enhancement. 3. Atrophy and mild small vessel disease. ACT 112: Negative or not required by law. Electronically signed by: Mj Sutherland M.D. 10/24/2021 7:17 AM
[2021-10-24 07:21] LABS: Estimated Average Glucose 143 mg/dl; Hemoglobin A1C 6.6 % (4.5-5.6)
[2021-10-24] MEDS ORDERED: ALFUZOSIN HCL 10 MG TAB PO SCH ×2 (09:00→21:00)
[2021-10-24] MEDS ORDERED: METOPROLOL SUCC 25MG EXT REL TAB PO SCH (09:00)
[2021-10-24] MEDS ORDERED: LANTUS PER UNIT CHARGE SQ SCH (09:00)
[2021-10-24] MEDS: INSULIN ASPART PER UNIT SC SCH ×3 (09:46→17:10)
--- NOTE | 2021-10-24 10:03 | Hospitalist Progress Note ---
Date of Service October 24, 2021 Assessment & Plan (1) Amnesia: Plan: Patient with about 6-7 hours of amnesia not associated with any other neurological deficits. - DDX: Heat related injury vs. Transient Global Amnesia vs. 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 - as above replace intravascular with LR overnight - Hold ARB - Hold HCTZ - Follow in am - avoid further nephrotoxic medications (3) Cardiac murmur: Plan: Severe Aortic stenosis - awaiting evaluation with CT surgeon in [place] -maintain euvolemia (4) DM type 2 (diabetes mellitus, type 2): Plan: Hold Metformin Hold Glipizide Lantus 7 units now and then BID Aspart sliding scale without GAP (5) Elevated troponin: Plan: Checked routinely by EMD He is without chest pain or ECG changes Likely related to his underlying cardiac function- likely type II demand Recheck now and trend (6) Prostate cancer: Plan: HX of remains on Alfuzosin- continue (7) Renal insufficiency: Plan: CKD III as above (8) Cardiomyopathy: Plan: NICM likely related to DM and HTN - Hold ARB as above - Continue BB (9) CAD (coronary artery disease): Plan: Non-obstructive CAD LAD - continue asa - continue BB - continue statin - Cath 07/20 (10) Anemia: Plan: unspecified HGB 11.8 usually in the 13 range denies any blood loss or change in stools - MCV 92 - RDW 13.2 - no record of EGD/COLO in system- follow Admission and Anticipated Discharge Date Admission Date: October 23, 2021 Physical Exam Constitutional: WD/WN, vitals as above Eyes: PERRL, conjunctivae normal, anicteric sclerae ENMT: external ear and nose normal, oropharynx normal Respiratory: normal respiratory effort, lungs clear to auscultation Cardiovascular: Heart Sounds: + murmur () Results & Data Results & Data ([facility]) Vital Signs (Past 12 Hours) Vital Signs Pulse Resp BP Pulse Ox O2 Del Method 10/24/21 07:00 662 H 20 97 Room Air 10/24/21 04:50 71 17 146/76 H 97 Room Air 10/24/21 01:10 89 18 152/81 H 98 Room Air 10/23/21 23:23 76 18 133/75 98 Room Air
--- NOTE | 2021-10-24 13:51 | Electrocardiogram Report ---
Test Reason : Blood Pressure : / mmHG Vent. Rate : 075 BPM Atrial Rate : 077 BPM P-R Int : 166 ms QRS Dur : 100 ms QT Int : 398 ms P-R-T Axes : 038 -04 -20 degrees QTc Int : 444 ms Sinus rhythm with frequent Premature ventricular complexes Nonspecific ST and T wave abnormality Abnormal ECG When compared with ECG of 13-DEC-2020 13:08, Premature ventricular complexes are now Present Confirmed by Vargas Dennis ([id number]) on 10/24/2021 1:50:33 PM Referred By: REFERRED SELF Confirmed By:Vargas Dennis
--- NOTE | 2021-10-24 19:03 | Discharge Summary ---
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 Patient comes to the EMD today for episode of confusion. This occurred after lunch ~ 1230. Patient remembers eating hot dog for lunch and then going out to mow the grass. He reports that he was riding and cutting the grass and endorses drinking Gatorade while he was outside. He is accompanied by his daughter and . They endorse that he was having trouble remembering what he was doing or what he just did, kept asking "what am I doing right now". This has not happened before. In the EMD the patient had routine labs performed which included a HScTNI, CT of the head, CTA of the head and neck and ECG performed. These were all negative for acute ischemic stroke or bleed. 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 Patient is able to recall events as of current and can now recall what happened in the EMD. He is without any other neurological deficit. Patient will be observed overnight on telemetry and obtain MRI of the brain. WIll lower his glucose level and replete mag. COVID test on admission is: NEGATIVE Admission Exam Per Admitting Provider General: awake, alert, no apparent distress Head: Normocephalic, atraumatic ENT: PERRLA, EOMI, no pharyngeal exudate, mucous membranes moist, poor dentition Neuro: AAO x 3, speech clear and appropriate, strength intact bilaterally 5/5, sensation intact and equal all extremities and dermatomes, no pronator drift Chest: equal rise and fall of the chest, no accessory muscle use, no heaves or thrills, Clear to auscultation, on room air, Cardiac: Regular rate and rhythm, telemetry reviewed- NSR with PVC, skin warm dry, cap refill <3 seconds, peripheral pulses +2 no JVD, Grade IV systolic murmur heard best RSB with radiation to carotids. GI: NABS x 4 quadrants, soft, nontender to palpation, no rebound, guarding or tenderness : Spontaneously voiding, no pain, no CVA tenderness, Extremities: Normal inspection, no peripheral edema or erythema, calfs nontender to palpation Psych: Normal mood and affect Skin: erythematous skin with blanching on the scalp consistent with sun exposure. Principal Diagnosis confusion Discharge Exam General: Grossly A&O. NAD. Cooperative. Conversational and cheerful; multiple family members at bedside. Hard of hearing. HEENT: Atraumatic, normocephalic. EOMI Pulm: CTAB. -wheezes, -rales, -rhonchi. L lung field very slightly softer Symmetrical chest rise. No respiratory distress. Cardiac: RRR, + 2/6 aortic murmur loudest at pulmonic region. Abdominal: Nontender, nondistended, soft. Integ: Warm, dry, intact. Neuro: No facial droop or assymmetry. Discharge Data Allergies Allergy/AdvReac Type Severity Reaction Status Date / Time No Known Allergies Allergy Verified 10/23/21 19:45 Consultations 10/23/21 20:35 ED Decision to Admit Stat Ordered Studies Cardiac Enzymes 10/23/21 10/23/21 10/24/21 Range/Units 18:23 23:13 05:31 AST 20 (13-39) U/L Troponin I High Sens 35.2 H 60.8 H* D 133.7 H* D (0-20) pg/ml 10/24/21 Range/Units 14:04 AST (13-39) U/L Troponin I High Sens 111.5 H* (0-20) pg/ml Coagulation 10/23/21 Range/Units 18:23 PT 11.2 (9.0-12.0) Seconds APTT 25.5 (21.0-31.0) Seconds CBC 10/24/21 Range/Units 05:31 WBC 5.84 (4.8-10.8) K/ul RBC 3.54 L (4.63-6.08) M/uL Hgb 11.0 L (14.0-18.0) g/dl Hct 32.3 L (40.1-51.0) % Plt Count 138 (130-400) K/uL Neut # (Auto) 3.73 (1.4-6.5) K/uL Lymph # (Auto) 1.32 (1.2-3.4) K/uL Stokes # (Auto) 0.58 (0.24-0.82) K/uL Eos # (Auto) 0.16 (0-0.50) K/uL Baso # (Auto) 0.03 (0-0.2) K/uL Comprehensive Metabolic Panel 10/23/21 10/24/21 Range/Units 18:23 05:31 Sodium 139 140 (136-145) mmol/L Potassium 3.8 3.5 (3.5-5.1) mmol/L Chloride 104 107 (98-107) mmol/L Carbon Dioxide 28 26 (21-32) mmol/L BUN 39 H 30 H (6-23) mg/dl Creatinine 1.85 H 1.51 H D (0.6-1.4) mg/dl Glucose 245 H 106 H (70-99(Fasting)) mg/dl Calcium 9.6 8.8 (8.5-10.1) mg/dl AST 20 (13-39) U/L ALT 19 (7-52) U/L Alkaline Phosphatase 74 (34-104) U/L Total Protein 7.2 (6.0-8.3) gm/dl Albumin 4.2 (3.4-5.0) gm/dl Intake and Output 10/24/21 10/24/21 10/24/21 06:59 14:59 22:59 Intake Total 1197.5 / 1197.5 1000 / 1000 Balance 1197.5 / 1197.5 1000 / 1000 Intake: IV 1197.5 / 1197.5 1000 / 1000 Lactated Ringer's 1,000 ml @ 1000 / 1000 100 mls/hr IV .Q10H DAPHNEY Rx#: [id number] Magnesium Sulfate / D5w 1 gm In 197.5 / 197.5 100 ml @ 50 mls/hr IV Q2H [facility]APH[facility] Rx#:[id number] Sodium Chloride 0.9% 500 ml @ 1000 / 1000 125 mls/hr IV .Q4H DAPHNEY Rx#: [id number] Other: Weight 76.4 kg Weight Measurement Method Built in [facility] Chest X-Ray 10/23/21 18:11 XR chest 1V portable HISTORY: Confusion. Stroke Like Symptoms COMPARISON: Chest 12/27/2020. FINDINGS: The lungs are clear. Cardiac silhouette is normal in size. No pleural effusions. No pneumothorax. Calcifications again noted within the aortic knob. IMPRESSION: No acute process. ACT 112: Negative or not required by law. Electronically signed by: Jim Lane M.D. 10/23/2021 6:[address] 10/23/21 18:[address] DOSE: 1078.23 mGy.cm HISTORY: Altered mental status. Amnesia. Stroke Like Symptoms TECHNIQUE: Multiaxial CT images of the head were performed without the use of intravenous contrast. Automated exposure control was utilized for this study. A dose lowering technique was utilized adhering to the principles of ALARA. Comparison: None. Findings: The paranasal sinuses and mastoid air cells are clear. The calvarium and skull base are intact. There is no mass, hematoma, midline shift, acute infarct. White matter hypodensity is nonspecific but suggestive of microvascular ischemic change. The ventricles and sulci demonstrate mild age-related involutional changes. Prominence of the lateral ventricles is likely due to central volume loss. Impression: No acute intracranial abnormality. Atrophy and microvascular ischemic changes. ACT 112: Negative or not required by law. Electronically signed by: Jim Lane M.D. 10/23/2021 8:14 PM Head CTA 10/23/21 18:11 HEAD & NECK CTA HISTORY: Amnesia. Stroke Like Symptoms TECHNIQUE: Multiaxial CT images of the head were performed following the intravenous administration of contrast to evaluate the major cerebral vessels. Multiaxial CT images of the neck were also performed following the intravenous administration of contrast to evaluate the major cervical vessels. Maximum int ensity projection images were also obtained. A dose lowering technique was utilized adhering to the principles of ALARA. COMPARISON: Noncontrast head CT 10/23/2021. FINDINGS: There is no mass, hematoma, midline shift, or acute infarct. Visualized intracranial internal carotid arteries, distal vertebral arteries, and basilar artery are widely patent. There is no significant stenosis, occlusion, or aneurysm seen within the bilateral ACAs, MCAs, or rn first assistant. The major dural venous sinuses are patent. Mild calcified plaque within the bilateral carotid siphons. The aortic arch and proximal great vessels are widely patent. There is no significant stenosis, occlusion, or dissection identified within the bilateral common carotid, internal carotid, or vertebral arteries. Mild to moderate ca lcified plaque within the bilateral carotid bifurcations. IMPRESSION: 1. No significant stenosis, occlusion, or aneurysm within the [place]. 2. No significant stenosis, occlusion, or dissection identified within the carotid or vertebral arteries. ACT 112: Negative or not required by law. Electronically signed by: Jim Lane M.D. 10/23/2021 8:21 PM Neck CTA 10/23/21 18:11 HEAD & NECK CTA HISTORY: Amnesia. Stroke Like Symptoms TECHNIQUE: Multiaxial CT images of the head were performed following the intravenous administration of contrast to evaluate the major cerebral vessels. Multiaxial CT images of the neck were also performed following the intravenous administration of contrast to evaluate the major cervical vessels. Maximum intensity projection images were also obtained. A dose lowering technique was utilized adhering to the principles of ALARA. COMPARISON: Noncontrast head CT 10/23/2021. FINDINGS: There is no mass, hematoma, midline shift, or acute infarct. Visualized intracranial internal carotid arteries, distal vertebral arteries, and basilar artery are widely patent. There is no significant stenosis, occlusion, or aneurysm seen within the bilateral ACAs, MCAs, or rn first assistant. The major dural venous sinuses are patent. Mild calcified plaque within the bilateral carotid siphons. The aortic arch and proximal great vessels are widely patent. There is no significant stenosis, occlusion, or dissection identified within the bilateral common carotid, internal carotid, or vertebral arteries. Mild to moderate calcified plaque within the bilateral carotid bifurcations. IMPRESSION: 1. No significant stenosis, occlusion, or aneurysm within the [place]. 2. No significant stenosis, occlusion, or dissection identified within the carotid or vertebral arteries. ACT 112: Negative or not required by law. Electronically signed by: Jim Lane M.D. 10/23/2021 8:21 PM Brain MRI 10/24/21 00:05 MRI OF THE BRAIN WITHOUT AND WITH IV CONTRAST CLINICAL HISTORY: transient global amnesia COMPARISON STUDY: Head CT and CTA of October 23, 2021. TECHNIQUE: Utilizing a 1.5 Nicole magnet and dedicated coil, multiplanar, multiecho imaging of the brain was performed pre and postcontrast administration. IV administration of 7.5 mL of Gadavist contrast was uneventful. FINDINGS: There are no foci of restricted diffusion to suggest acute infarct. No acute intracranial hemorrhage, midline shift or mass effect is present. Mild ventricular dilatation is due to atrophy. Basal cisterns are patent. There are no extra axial collections. There are multiple small white matter T2 hyperintense foci just to small vessel disease. There is no intracranial mass or pathologic enhancement. Flow-voids for the major intracranial vessels are present. Calvarial signal is within normal limits. Orbits are unremarkable. There is no evidence for sinusitis. There is no mastoid fluid. IMPRESSION: 1. No acute intracranial findings. 2. No intracranial mass or pathologic enhancement. 3. Atrophy and mild small vessel disease. ACT 112: Negative or not required by law. Electronically signed by: Mj Sutherland M.D. 10/24/2021 7:17 AM Hospital Course (1) Episode of confusion: 81 year old male w/ PMHx of severe aortic stenosis, HFrEF (EF 35-40), prostate cancer, DM, HLD who presented for 6-7 hours of confusion afternoon of 10/23/21 while/after mowing grass outside. There were no associated neurological deficits. This was most likely an episode of confusion in setting of likely chronic mild cognitive impairment vs dementia, exacerbated by physiological stress and dehydration w/ lower threshold from severe aortic stenosis. Other differentials considered such as TIA (has risk factors such as DM and would not show on MRI), stroke, transient global amnesia, heat related injury. Duration of symptoms is less consistent w/ near-syncope. - MRI and CTA head/neck w/o acute findings. - Because of possibility of TIA: Discontinue baby aspirin in favor of starting Plavix temporarily (e.g. 3 months) before resumption of baby aspirin. Deferring to PCP to determine duration. - Continue high-intensity statin - Patient mentation returned/remained at baseline, observed ~24 hours. - Consider MoCA brief cognitive testing in outpatient testing as patient does endorse mild memory issues chronically. - Patient did require some IV fluids as he was slightly hypovolemic. (2) HONORIO (acute kidney injury): HONORIO on CKD, baseline Cr 1.28-1.48. 1.85 at admission, improved to 1.51 - as above replaced intravascular with LR - repeat BMP in 1 week - Resumed home BP meds upon discharge (3) Cardiac murmur: Severe Aortic stenosis - awaiting evaluation with CT surgeon in [place] (4) DM type 2 (diabetes mellitus, type 2): Resume home regimen. A1c 6.6, at goal. (5) Elevated troponin: hs trop peaked. mild increase. likely from HONORIO/demand ischemia from hypoperfusion due to co-existing conditions. (6) Prostate cancer: HX of remains on Alfuzosin- continue (7) Renal insufficiency: CKD as above (8) Cardiomyopathy: NICM likely related to DM and HTN - Continue home regimen (9) CAD (coronary artery disease): See above (10) Anemia: unspecified HGB 11.8 usually in the 13 range denies any blood loss or change in stools - MCV 92 - RDW 13.2 - no record of EGD/COLO in system- h/h stable on recheck. Should have outpatient follow up (11) HTN (hypertension): - Resume home regimen. Follow BP in outpatient setting and consider home BP log. Plan Patient was full code this admission. Total Time Total Time Spent Total Time Spent (In Minutes): <30 Discharge Plan Discharge Items Patient Disposition: Home - Self-Care Reason For Visit: AMNESIA Discharge Diagnosis: acute confusion Non-emergency contact: Primary Care Provider Call non-emergency contact if: you have any medication questions, your symptoms worsen and you have a fever Follow-up/Referrals: Octavia Camp MD [Primary Care Provider] - (appointment will be made w/ [facility] resident clinic within 1 week of hospital discharge) Diet: Carb Consistent or DM2 and Heart Healthy Addtl Attending Provider Instructions: Hi Mr. Taveras, You were admitted to [facility] for an episode of confusion yesterday afternoon. You experienced disorientation and had a few hours of memory problems. In the hospital, MRI of your brain was checked. This did not show stroke. The blood vessels in your head and neck did not show blockage. Your labs and ekg were reviewed. Your symptoms later resolved. The cause of your symptoms are unknown. It is possible that your body was stressed from dehydration and being outdoors. You do have risk factors for TIA (stroke-like symptoms that resolve) such as diabetes. Therefore, your baby aspirin will be discontinued and you will be taking a new medication called Plavix. You can start the first dose tomorrow. These 2 medications both affect your platelets and can reduce the risk of clots in your brain. Please follow up with your PCP's office within 1 week for routine hospital discharge follow up. After a few months, you may potentially be able to switch back to the baby aspirin. Please call 911 if you develop any stroke-like symptoms such as facial droop, speech slurring, or arm/leg, facial weakness or numbness. For strokes, it is very important be be seen by the emergency room as soon as possible. Call your PCP if you have any other concerns. Pending Studies at Discharge: No Stand-Alone Forms: My [facility], Smoking Cessation Medications and DC Order Prescriptions: New clopidogrel [Plavix] 75 mg tablet 75 mg PO DAILY Qty: 30 2RF Continued latanoprost 0.005 % drops 1 drops OPL HS Rx Instructions: Left Eye only Probiotic 3 billion cell capsule 3,000 mmu cells PO DAILY Rx Instructions: administer with a meal alfuzosin 10 mg tablet extended release 24 hr 10 mg PO DAILY Qty: 90 3RF Rx Instructions: after same meal each day atorvastatin 80 mg tablet 80 mg PO PM garlic 1,000 mg Capsule 1,000 mg PO QAM cholecalciferol (vitamin D3) [Vitamin D3] 50 mcg (2,000 unit) Capsule 50 mcg PO QAM metformin 500 mg tablet 500 mg PO BID hydrochlorothiazide 25 mg tablet 25 mg PO QAM losartan 100 mg tablet 100 mg PO QAM glipizide 5 mg tablet 10 mg PO BID metoprolol succinate 25 mg tablet extended release 24 hr 25 mg PO DAILY Qty: 30 3RF Centrum Silver 0.4 mg-300 mcg- 250 mcg Tablet 1 tab PO DAILY Discontinued aspirin 81 mg tablet,delayed release (DR/EC) 81 mg PO PM Discharge Orders: Discharge Order (Routine); Ordered 10/24/21 Ordered By: Darrius Miller/Other Patient Handouts: Managing Type 2 Diabetes Admission Data Admit Date/Time: 10/23/21 21:12 Attending Provider: Aby Hoover Admit Provider: Angi Rivera Primary Care Provider: Octavia Camp Other Providers: Angi Rivera Supervising Physician Co-Signing Physician Notes Resident Physician Supervision Note: I independently interviewed and examined the patient and verified the ventura history and physical, reviewed labs and image studies and agree with resident Dr. Delcid findings and care plan. Resident Activity Tracking Resident Involvement: Resident Care Provided Care Provided: Adult Hospital Medicine
[2021-10-24] MEDS ORDERED: LATANOPROST 0.005% OP SOLN 2.5 ML BTL OPL SCH (21:00)
[2021-10-24] MEDS ORDERED: ATORVASTATIN 40 MG TAB PO SCH (21:00)
[2021-10-24] MEDS ORDERED: ASPIRIN 81 MG ECTAB PO SCH (21:00)
== END 2021-10-24 20:51 | disposition home or self-care (01) ==
LOC: ED 18:02 → EDINP 18:02 → SUATTDRO 21:12 → 2W 23:40